=== PATIENT | female | born 1980 | race African-American/Black ===

== ENCOUNTER 2017-10-25 11:58 | Inpatient (IN) | payer OTHER ==
[2017-10-25] VITALS (36 sets, daily range): BP systolic 83–222; BP diastolic 61–129
[~2017-10-25] VITALS: Ht 157.5 cm; Wt 73.9 kg
[2017-10-25] MEDS ORDERED: ALBUTEROL SULF 0.083% NEB SOLN 3 ML NEB NEB STA (12:16)
[2017-10-25] MEDS ORDERED: SODIUM CHLORIDE 0.9% 1000ML 1,000 ML IV ONE ×2 (12:30)
[2017-10-25] MEDS ORDERED: PIPER-TAZ 3.375 GM 50 ML IV ONE (12:30)
[2017-10-25] MEDS ORDERED: METOPROLOL SUCC50 MG PO (12:38)
[2017-10-25] MEDS ORDERED: SYNTHROID125 MCG PO (12:38)
[2017-10-25] MEDS ORDERED: IOPAMIDOL 370 MG/ML 200 ML INFUS..BTL INJ ONE (13:00)
[2017-10-25] MEDS ORDERED: SODIUM CHLORIDE 0.9% 1000ML 1,000 ML IV SCH ×2 (13:01→16:15)
[2017-10-25] MEDS ORDERED: ENOXAPARIN INJ 80 MG/0.8 ML SYR SC STA (13:16)
[2017-10-25] MEDS: LEVALBUTEROL HCL SOLN NEBU 1.25 MG/3 ML NEB INH PRN (13:48)
[2017-10-25 14:15] LABS: BASOPHILS # (AUTO) 0.1 (0.0-0.1); BASOPHILS % 0.3 % (0.0-1.0); LYMPHOCYTES # (AUTO) 0.4 (1.0-3.2); LYMPHOCYTES % 1.3 % (18.0-39.1); MEAN CORPUSCULAR HEMOGLOBIN 24.8 pg (28-32); MEAN CORPUSCULAR HGB CONC 32.4 g/dL (31-35); MEAN CORPUSCULAR VOLUME 76.6 fL (81-99); MONOCYTES # (AUTO) 0.7 (0.2-0.8); MONOCYTES % 2.5 % (4.4-11.3); NEUTROPHILS # (AUTO) 26.7 (2.1-6.9); PLATELET COUNT 286 x10e3/uL (140-360); RED BLOOD COUNT 4.44 x10e6/uL (3.6-5.1); RED CELL DISTRIBUTION WIDTH 18.5 % (11.7-14.4)
[2017-10-25 14:35] LABS: ALBUMIN 2.8 g/dL (3.5-5.0); ALBUMIN/GLOBULIN RATIO 0.6 (0.8-2.0); ANION GAP 23.4 mmol/L (8-16); CALCIUM 9.3 mg/dL (8.4-10.2); CREATININE, SERUM 1.45 mg/dL (0.57-1.11); POTASSIUM 3.4 mmol/L (3.5-5.1)
[2017-10-25 14:44] LABS: ANISOCYTOSIS SLIGHT; BAND NEUTROPHILS % (MANUAL) 15 %; LYMPHOCYTES % (MANUAL) 5 % (19-48); MICROCYTOSIS SLIGHT; MONOCYTES % (MANUAL) 2 % (3.4-9.0); NEUTROPHILS % (MANUAL) 78 % (40-74)
[2017-10-25 14:45] LABS: PLATELET ESTIMATE ADEQUATE; PLATELET MORPHOLOGY COMMENT NORMAL; RBC MORPHOLOGY COMMENT NORMAL; TOXIC GRANULATION SLIGHT
[2017-10-25 14:56] LABS: ABG PCO2 25 mmHg (41-51); ABG PH 7.47 (7.31-7.41); ABG PO2 384 mmHg (80-105)
[2017-10-25 14:57] LABS: CREATINE KINASE MB 2.8 ng/mL (0-5.0); HCG,QUANTITATIVE 22222.85 mIU/mL (0-10)
[2017-10-25 14:57] LABS: ABG HCO3 19 mmol/L (23-28)
[2017-10-25] MEDS ORDERED: ALBUTEROL SULF 0.083% NEB SOLN 3 ML NEB NEB SCH (15:00)
[2017-10-25 15:08] LABS: INR 1.41; PROTHROMBIN TIME 16.2 seconds (11.9-14.5)
[2017-10-25 15:09] LABS: BASOPHILS # (AUTO) 0.1 (0.0-0.1); BASOPHILS % 0.2 % (0.0-1.0); HEMATOCRIT 32.5 % (34.2-44.1); HEMOGLOBIN 10.2 g/dL (12.0-16.0); LYMPHOCYTES # (AUTO) 0.3 (1.0-3.2); LYMPHOCYTES % 1.1 % (18.0-39.1); MEAN CORPUSCULAR HEMOGLOBIN 24.6 pg (28-32); MEAN CORPUSCULAR HGB CONC 31.4 g/dL (31-35); MEAN CORPUSCULAR VOLUME 78.3 fL (81-99); MONOCYTES # (AUTO) 1.2 (0.2-0.8); MONOCYTES % 4.2 % (4.4-11.3); NEUTROPHILS # (AUTO) 25.3 (2.1-6.9); NEUTROPHILS % 92.1 % (38.7-80.0); PARTIAL THROMBOPLASTIN TIME 32.2 seconds (23.8-35.5); PLATELET COUNT 265 x10e3/uL (140-360); RED BLOOD COUNT 4.15 x10e6/uL (3.6-5.1); RED CELL DISTRIBUTION WIDTH 18.4 % (11.7-14.4)
[2017-10-25] MEDS ORDERED: ACETAMINOPHEN 1000 MG/100 ML 100 ML IV ONE (15:09)
[2017-10-25] MEDS ORDERED: PROPOFOL IV EMULSION 10MG/ML 100 ML ONE (15:14)
[2017-10-25] MEDS ORDERED: SUCCINYLCHOLINE CHLORIDE 20 MG/ML 10ML VIAL ONE (15:15)
[2017-10-25 15:19] LABS: ALBUMIN 2.4 g/dL (3.5-5.0); ALBUMIN/GLOBULIN RATIO 0.6 (0.8-2.0); ANION GAP 17.2 mmol/L (8-16); CALCIUM 8.1 mg/dL (8.4-10.2); CREATININE, SERUM 1.25 mg/dL (0.57-1.11); POTASSIUM 3.2 mmol/L (3.5-5.1)
[2017-10-25 15:34] LABS: ANISOCYTOSIS SLIGHT; BAND NEUTROPHILS % (MANUAL) 13 %; LYMPHOCYTES % (MANUAL) 4 % (19-48); MICROCYTOSIS SLIGHT; MONOCYTES % (MANUAL) 1 % (3.4-9.0); NEUTROPHILS % (MANUAL) 82 % (40-74); PLATELET ESTIMATE ADEQUATE; PLATELET MORPHOLOGY COMMENT NORMAL; RBC MORPHOLOGY COMMENT NORMAL; TOXIC GRANULATION SLIGHT
[2017-10-25] MEDS ORDERED: MIDAZOLAM HCL 2 MG/2 ML VIAL ONE (15:39)
[2017-10-25] MEDS ORDERED: VECURONIUM BROMIDE FOR INJ 20 MG VIAL ONE (15:40)
[2017-10-25] MEDS ORDERED: SODIUM CHLORIDE 0.9% 1000ML 1,000 ML ONE (15:46)
[2017-10-25] MEDS: VANCOMYCIN 1GM/NS 250 ML 250 ML IV SCH (16:00)
[2017-10-25 16:05] LABS: HIV 1&2 AB SCREEN NON-REACTIVE (NONREACTIVE)
--- NOTE | 2017-10-25 16:15 | Consultation ---
DATE OF CONSULTATION: October 25, 2017 INFECTIOUS DISEASE CONSULTATION HISTORY OF PRESENT ILLNESS: Ms. Stuart is a very pleasant 37-year-old female. She works in Hospital. I did see her yesterday as the curbside. She complained to me that the last 2 days she has been having headache, congestion, sore throat. The patient was refilling a prescription of Augmentin. My assessment yesterday if she had sinusitis. Her chest sounded clear yesterday, but today she presented to the emergency room with worsening condition. Patient is currently in the intensive care unit, being intubated. Infectious Disease was consulted. LABORATORY DATA: Her white count is 27.4, hemoglobin 10, hemoglobin 32, her platelet of 286. Sodium 128, potassium 3.2, creatinine 1.25 went up to 1.45. Liver enzyme AST of 40. Total protein 6.5. PHYSICAL EXAMINATION: GENERAL: She is currently alert. She is currently being intubated. HEENT: She does not appear icteric. CHEST: A few crackles bilaterally. HEART: S1/S2. No S3, no S4. No murmur. ABDOMEN: Soft. IMPRESSION: Respiratory failure. Sepsis. Concerned about pneumonia. Will get a chest x-ray. Agree with vancomycin, agree with Zosyn, will adjust for her kidney function. Will also add azithromycin. Obtain blood cultures, sputum cultures, especially after intubation. Will obtain HIV. Will follow. Job#: [id number] EV
--- NOTE | 2017-10-25 16:19 | Diagnostic Imaging Report ---
EXAMINATION: CHEST SINGLE (PORTABLE) INDICATION: \S\Intubation \S\[id number] \S\1600 COMPARISON: None FINDINGS: AP view TUBES and LINES: Endotracheal tube in place with tip pointing toward the right main bronchus. LUNGS: Limited study due to body habitus. Complete opacification of the left lung with mediastinal shift to the left. Right lung is clear. PLEURA: No right pleural effusion or pneumothorax. HEART AND MEDIASTINUM: Obscured, limiting evaluation. BONES AND SOFT TISSUES: No acute osseous lesion. Soft tissues are unremarkable. UPPER ABDOMEN: No free air under the diaphragm. IMPRESSION: The endotracheal tube is within right main bronchus. Recommend retraction/ repositioning. Complete opacification of the left lung with mediastinal shift to the left, likely due to atelectasis. Signed by: Dr. Garth Prince MD on 10/25/2017 4:16 PM
--- NOTE | 2017-10-25 16:57 | Diagnostic Imaging Report ---
EXAMINATION: CHEST SINGLE (PORTABLE) INDICATION: \S\verify et tube position after repositioning \S\[id number] \S\1637 COMPARISON: Same day at 1549 hours FINDINGS: See impression. IMPRESSION: Slight retraction of endotracheal tube with slightly improved aeration of the left lung when compared to prior exam. Recommend further retraction of endotracheal tube (2 3-cm). Signed by: Dr. Garth Prince MD on 10/25/2017 4:53 PM
[2017-10-25] MEDS ORDERED: ACETAMINOPHEN 1000 MG/100 ML IV ONE (17:00)
[2017-10-25 17:46] LABS: ABG HCO3 18 mmol/L (23-28); ABG PCO2 41 mmHg (41-51); ABG PH 7.25 (7.31-7.41); ABG PO2 113 mmHg (80-105)
[2017-10-25] MEDS ORDERED: PIPER-TAZ 3.375 GM 50 ML IV SCH (18:00)
[2017-10-25] MEDS ORDERED: LACTATED RINGER'S 1,000 ML ONE (18:15)
[2017-10-25] MEDS ORDERED: ACETAMINOPHEN 1000 MG/100 ML IV PRN (18:30)
--- NOTE | 2017-10-25 18:59 | Diagnostic Imaging Report ---
EXAMINATION: CHEST SINGLE (PORTABLE) INDICATION: \S\PNA \S\[id number] \S\1821 COMPARISON: Earlier same day FINDINGS: AP view See below. IMPRESSION: Further retraction of endotracheal tube with tip now approximately 2.2 cm above martha and slight improvement of the left lung aeration. Underlying pneumonia/effusion in the left lung cannot be excluded. Signed by: Dr. Garth Prince MD on 10/25/2017 6:56 PM
[2017-10-25] MEDS: LACTATED RINGER'S 1,000 ML IV SCH (19:36)
[2017-10-25] MEDS: AZITHROMYCIN 500MG/NS 250 ML 250 ML IV SCH (20:30)
--- NOTE | 2017-10-25 21:57 | History and Physical ---
HISTORY OF PRESENT ILLNESS: Ms. Ramirez is a 37-year-old female. She is well known to me from [facility]. 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 She presented to the free standing emergency room with complaints of shortness of breath and cough. She spoke to Dr. Hollins today before this visit that she was having trouble breathing. In the freestanding ER, she was tachypneic and tachycardic. She was sent to the hospital here at [facility], became tachypneic and tachycardic and was unable to breathe, hence the patient was intubated by the emergency room. It was a difficult intubation as the patient has a history of Tourette syndrome and has very short neck. The patient is denying any complaints. The patient is currently intubated, sedated. REVIEW OF SYSTEMS: Unable to elicit any as the patient is intubated, sedated. PAST MEDICAL HISTORY: The brother is at the bedside and there is no other family member, or children and has told me that she does not have any medical problem. FAMILY AND SOCIAL HISTORY: She does not smoke, does not drink. She works as a receptionist secretary. PHYSICAL EXAM: VITAL SIGNS: Temperature 104.7, pulse of 140, blood pressure 113/64. HEENT: Head atraumatic, normocephalic. NECK: Short neck. CHEST: Clear to auscultation bilaterally with crackles on the left side. HEART: S1, S2 audible. ABDOMEN: Soft, nontender. EXTREMITIES: No clubbing, cyanosis or edema. NEUROLOGIC: She is sedated, intubated. LABS: The patient's white count is 27,000, hemoglobin 10.2, hematocrit 32.5, platelets 265,000. Chemistry: Sodium 128, potassium 3.2, chloride 96, BUN 19, creatinine 1.25, was 1.45. Lactic acid was 36.3. Patient's hydrochlorothiazide is 22,000. Creatinine clearance was 73. Chest x-ray is showing evidence of left-sided multilobar pneumonia. ASSESSMENT/PLAN: Ms. Ramirez is a 37-year-old female, presented with acute hypoxic respiratory failure and shortness of breath. Chest x-ray is showing pneumonia. Currently, she has severe sepsis which was present on admission. Current problems: 1. Severe sepsis with high lactic acid, tachycardia, tachypnea. The patient never required vasopressors and is not hypotensive. I will start the patient on IV antibiotics. Discussed with Dr. Hollins. He recommended vancomycin, Zosyn and azithromycin. 2. Keep the patient on mechanical ventilator. Vent settings reviewed. Blood gas post intubation pH of 7.25, pCO2 of 40 and pO2 of 113 on FiO2 of 60%. 3. I will repeat her chest x-ray to confirm the position of the tube. 4. She has a difficult airway because of Tourette syndrome. She has small neck. The patient was intubated with multiple attempts. 5. Acute kidney injury, likely ATN due to severe sepsis. I will start the patient on IV hydration. Also will consider starting tube feeding. 6. The patient's hCG is high and she is , therefore, we cannot do a CTA of the chest which we were planning initially to do. Job#: [id number]
--- NOTE | 2017-10-25 22:08 | Diagnostic Imaging Report ---
EXAM: Obstetric Pelvic Ultrasound INDICATION: Positive test. COMPARISON: None TECHNIQUE: Transabdominal and transvaginal evaluation of the pelvis was performed in the transverse and longitudinal planes. CLINICAL HISTORY: 37 year old intubated, without known SOLE TACKER history FINDINGS: Uterus: Orientation: Normal Size: 8.6 x 5.1 x 6.5 cm, gravid Mass: None Cervix: Normal Gestational Sac: Location: Intrauterine Average sac diameter: 2.35 cm Estimated sonographic GA: 7 weeks and 3 days Appearance: Normal in contour Subchorionic hemorrhage: None Yolk sac: Normal Embryo/Fetus: [place] rump length: 1.06 cm Estimated sonographic GA: 7 weeks and 1 day Cardiac activity: ... Several M-mode Right ovary Not seen Left ovary Size: 2.6 x 1.2 x 3.2 cm Mass/Cyst: None Cul-de-sac: No free fluid IMPRESSION: 1. Intrauterine of indeterminate viability. 2. Inconclusive study. Continued follow-up with serial beta-hCG is recommended. Repeat transvaginal ultrasound can be performed for another attempt of an M-mode or color flow for capture of cardiac activity Signed by: Dr. Preston Mendez M.D. on 10/25/2017 10:05 PM
--- NOTE | 2017-10-25 23:27 | Diagnostic Imaging Report ---
EXAMINATION: CHEST XRAY LINE PLACEMENT INDICATION: PICC line confirmation COMPARISON: 10/25/2017 at 1825 hours FINDINGS: TUBES and LINES: Endotracheal and NG tube are stable in position. Interval placement of right upper extremity PICC line with tip at the level of the superior segment of the SVC LUNGS: Lungs are not well inflated. Diffuse opacification with air bronchogram of the left hemithorax with minimal air at the apex . Right lung base Central vascular congestion. PLEURA: Left pleural effusion is present HEART AND MEDIASTINUM: Cardiac size is mildly enlarged. There are atherosclerotic calcifications within the aorta. BONES AND SOFT TISSUES: No acute osseous lesion. Soft tissues are unremarkable. UPPER ABDOMEN: No free air under the diaphragm. IMPRESSION: 1. Findings are in keeping with left lung base pneumonia versus atelectasis. 2. Tubes and lines are in good position. Signed by: Dr. Preston Mendez M.D. on 10/25/2017 11:24 PM
[2017-10-25 23:31] LABS: CREATINE KINASE MB 3.3 ng/mL (0-5.0)
[2017-10-26] VITALS (97 sets, daily range): BP systolic 65–201; BP diastolic 26–141
[2017-10-26] MEDS: LACTATED RINGER'S 1,000 ML IV SCH ×3 (03:30→19:04)
[2017-10-26] MEDS: PIPERACILLIN/TAZO 2.25 GM 50 ML IV SCH ×2 (05:49→14:42)
[2017-10-26 06:09] LABS: BASOPHILS % 0.2 % (0.0-1.0); HEMOGLOBIN 8.2 g/dL (12.0-16.0); LYMPHOCYTES # (AUTO) 0.3 (1.0-3.2); LYMPHOCYTES % 1.8 % (18.0-39.1); MEAN CORPUSCULAR HEMOGLOBIN 24.7 pg (28-32); MEAN CORPUSCULAR HGB CONC 31.5 g/dL (31-35); MEAN CORPUSCULAR VOLUME 78.3 fL (81-99); MONOCYTES # (AUTO) 0.5 (0.2-0.8); MONOCYTES % 2.5 % (4.4-11.3); NEUTROPHILS % 93.9 % (38.7-80.0); PLATELET COUNT 214 x10e3/uL (140-360); RED BLOOD COUNT 3.32 x10e6/uL (3.6-5.1); RED CELL DISTRIBUTION WIDTH 18.6 % (11.7-14.4)
[2017-10-26 06:35] LABS: CREATINE KINASE MB 2.7 ng/mL (0-5.0)
--- NOTE | 2017-10-26 06:51 | Diagnostic Imaging Report ---
EXAMINATION: CHEST SINGLE (PORTABLE) INDICATION: Intubated patient. COMPARISON: 10/25/2017 at 2257 hours FINDINGS: TUBES and LINES: Endotracheal and NG tube are stable in position. Interval placement of right upper extremity PICC line with tip at the level of the superior segment of the SVC LUNGS: Lungs are not well inflated. Diffuse opacification with air bronchogram of the left hemithorax with minimal air at the apex . Right lung base Central vascular congestion. PLEURA: Left pleural effusion is present HEART AND MEDIASTINUM: Cardiac size is mildly enlarged. There are atherosclerotic calcifications within the aorta. BONES AND SOFT TISSUES: No acute osseous lesion. Soft tissues are unremarkable. UPPER ABDOMEN: No free air under the diaphragm. IMPRESSION: 1. Findings are in keeping with left lung base pneumonia versus atelectasis. 2. Tubes and lines are in good position. Signed by: Dr. Preston Mendez M.D. on 10/26/2017 6:47 AM
[2017-10-26 07:08] LABS: ALANINE AMINOTRANSFERASE 33 IU/L (0-55); ALBUMIN 1.7 g/dL (3.5-5.0); ALBUMIN/GLOBULIN RATIO 0.5 (0.8-2.0); ALKALINE PHOSPHATASE 52 IU/L (40-150); ANION GAP 12.2 mmol/L (8-16); BLOOD UREA NITROGEN 21 mg/dL (7-26); BUN/CREATININE RATIO 18 (6-25); CARBON DIOXIDE 18 mmol/L (22-29); CHLORIDE 103 mmol/L (98-107); CREATININE, SERUM 1.16 mg/dL (0.57-1.11); EST GLOMERULAR FILTRATION RATE > 60 ML/MIN (60-); GLUCOSE 111 mg/dL (74-118); POTASSIUM 3.2 mmol/L (3.5-5.1); SODIUM 130 mmol/L (136-145)
[2017-10-26] MEDS: MIDAZOLAM HCL 25 MG in SODIUM CHLORIDE 0.9% 50ML 45 ML IV PRN ×2 (09:45→21:42)
[2017-10-26] MEDS: FAMOTIDINE 20 MG/2 ML VIAL IV SCH ×2 (09:53→20:39)
--- NOTE | 2017-10-26 10:06 | Diagnostic Imaging Report ---
CORRECTION Corrected on: 10/26/2017; Dictated by: Xavier Nieves M.D. on 10/26/2017 at 10:10 Electronically approved by: Xavier Nieves M.D. on 10/26/2017 at 10:10 PROCEDURE:US CHEST (INCL MEDIASTINUM) COMPARISON:[facility], DX, CHEST SINGLE (PORTABLE), 10/25/2017, 18:25. INDICATION:Pleural effusion TECHNIQUE:Grayscale ultrasound chest, bilateral FINDINGS: See conclusion. CONCLUSION: 1. Very small loculated left pleural effusion. 2. No right effusion. Dictated by: Xavier Nieves M.D. on 10/26/2017 at 10:09 Electronically approved by: Xavier Nieves M.D. on 10/26/2017 at 10:09
[2017-10-26 10:07] LABS: BAND NEUTROPHILS % (MANUAL) 29 %; LYMPHOCYTES % (MANUAL) 3 % (19-48); MONOCYTES % (MANUAL) 2 % (3.4-9.0); NEUTROPHILS % (MANUAL) 66 % (40-74)
[2017-10-26 10:08] LABS: PLATELET MORPHOLOGY COMMENT FEW LARGE
[2017-10-26 10:09] LABS: PLATELET ESTIMATE ADEQUATE
[2017-10-26 10:10] LABS: ANISOCYTOSIS SLIGHT; HYPOCHROMASIA MODERATE; POIKILOCYTOSIS SLIGHT; RBC MORPHOLOGY COMMENT ABNORMAL
[2017-10-26 10:11] LABS: BURR CELLS SLIGHT
[2017-10-26] MEDS: LEVALBUTEROL HCL SOLN NEBU 1.25 MG/3 ML NEB INH PRN (11:12)
[2017-10-26] MEDS ORDERED: METOPROLOL TARTRATE INJ 1 MG/ML VIAL ONE (12:22)
[2017-10-26] MEDS: ACETAMINOPHEN 1000 MG/100 ML IV PRN ×2 (12:30→18:30)
[2017-10-26] MEDS ORDERED: METOPROLOL TARTRATE INJ 1 MG/ML VIAL IV ONE (12:30)
[2017-10-26] MEDS: VANCOMYCIN 1GM/NS 250 ML 250 ML IV SCH (13:26)
--- NOTE | 2017-10-26 15:35 | Consultation ---
DATE OF CONSULTATION: ADDENDUM TO THE CONSULT Ms. Ramirez is currently intubated in intensive care unit. The patient is currently lying in bed intubated. PHYSICAL EXAMINATION: GENERAL: She is intubated, sedated. VITAL SIGNS: Stable, afebrile. She had a T-max of 104.7, heart rate is 140 earlier. HEENT: She does not appear icteric. NECK: Supple. ABDOMEN: Soft. Bowel sounds are present. No tenderness. The patient who is found to be 5 weeks. IMPRESSION: 1. Pneumonia. 2. Acute respiratory distress. 3. Community-acquired pneumonia, severe. 4. Sepsis, severe. Continue with vancomycin. Continue with Zosyn. Continue with azithromycin. Await sputum cultures which I obtained immediately after intubation. Consider foxpro developer-nailer hand evaluation. Will discuss with attending. Job#: [id number]
[2017-10-26] MEDS: AZITHROMYCIN 500MG/NS 250 ML 250 ML IV SCH (15:55)
[2017-10-26] MEDS: ENOXAPARIN 30 MG/0.3 ML SYR SC SCH (15:55)
[2017-10-26] MEDS: FOLIC ACID 1 MG TAB PO SCH (20:39)
[2017-10-26] MEDS: PIPER-TAZ 3.375 GM 50 ML IV SCH (22:09)
[2017-10-27] VITALS (78 sets, daily range): BP systolic 93–169; BP diastolic 29–125
[2017-10-27] MEDS: VANCOMYCIN 1GM/NS 250 ML 250 ML IV SCH ×2 (01:44→14:17)
[2017-10-27] MEDS: ACETAMINOPHEN 1000 MG/100 ML IV PRN ×2 (02:07→10:02)
[2017-10-27] MEDS: LACTATED RINGER'S 1,000 ML IV SCH ×2 (03:12→08:52)
[2017-10-27 06:04] LABS: BASOPHILS % 0.3 % (0.0-1.0); EOSINOPHILS % 0.1 % (0.0-6.0); HEMATOCRIT 26.3 % (34.2-44.1); HEMOGLOBIN 8.4 g/dL (12.0-16.0); LYMPHOCYTES # (AUTO) 0.5 (1.0-3.2); LYMPHOCYTES % 3.2 % (18.0-39.1); MEAN CORPUSCULAR HEMOGLOBIN 24.8 pg (28-32); MEAN CORPUSCULAR HGB CONC 31.9 g/dL (31-35); MEAN CORPUSCULAR VOLUME 77.6 fL (81-99); MONOCYTES # (AUTO) 0.4 (0.2-0.8); MONOCYTES % 2.7 % (4.4-11.3); NEUTROPHILS # (AUTO) 14.2 (2.1-6.9); NEUTROPHILS % 90.7 % (38.7-80.0); PLATELET COUNT 225 x10e3/uL (140-360); RED BLOOD COUNT 3.39 x10e6/uL (3.6-5.1); RED CELL DISTRIBUTION WIDTH 18.9 % (11.7-14.4)
[2017-10-27] MEDS: PIPER-TAZ 3.375 GM 50 ML IV SCH ×3 (06:14→22:46)
[2017-10-27 06:33] LABS: ANION GAP 12.3 mmol/L (8-16); BLOOD UREA NITROGEN 23 mg/dL (7-26); BUN/CREATININE RATIO 23 (6-25); CARBON DIOXIDE 20 mmol/L (22-29); CHLORIDE 104 mmol/L (98-107); EST GLOMERULAR FILTRATION RATE > 60 ML/MIN (60-); GLUCOSE 94 mg/dL (74-118); MAGNESIUM 1.6 MG/DL (1.3-2.1); POTASSIUM 3.3 mmol/L (3.5-5.1); SODIUM 133 mmol/L (136-145)
--- NOTE | 2017-10-27 06:52 | Diagnostic Imaging Report ---
EXAM: CHEST SINGLE (PORTABLE), AP 1 view INDICATION: Intubated COMPARISON: AP view of the chest October 26, 2017 FINDINGS: LINES/TUBES: Stable endotracheal tube and nasal/orogastric tube. LUNGS: Stable near complete opacification of the left lung. Airspace opacities in the right lung base. PLEURA: Effusion on the left as seen on prior ultrasound HEART AND MEDIASTINUM: Left heart border obscured BONES AND SOFT TISSUES: No interval change IMPRESSION: No interval change Signed by: Dr. Oneyda Dewey M.D. on 10/27/2017 6:48 AM
[2017-10-27] MEDS: LEVALBUTEROL HCL SOLN NEBU 1.25 MG/3 ML NEB INH PRN (07:30)
[2017-10-27] MEDS ORDERED: POTASSIUM CHLORIDE 20MEQ/100ML 100 ML IV ONE (08:30)
[2017-10-27] MEDS: FOLIC ACID 1 MG TAB PO SCH (08:52)
[2017-10-27] MEDS: FAMOTIDINE 20 MG/2 ML VIAL IV SCH ×2 (08:52→21:39)
[2017-10-27] MEDS: EYE LUBRICANT OPTH OINT 3.5GM TUBE OP SCH ×2 (08:52→16:44)
[2017-10-27 09:02] LABS: ABG HCO3 19 mmol/L (23-28); ABG PCO2 26 mmHg (41-51); ABG PH 7.46 (7.31-7.41); ABG PO2 148 mmHg (80-105)
[2017-10-27 09:13] LABS: ANISOCYTOSIS SLIGHT; BAND NEUTROPHILS % (MANUAL) 8 %; HYPOCHROMASIA SLIGHT; LYMPHOCYTES % (MANUAL) 2 % (19-48); METAMYELOCYTES % (MANUAL) 3 % (0-0); MONOCYTES % (MANUAL) 3 % (3.4-9.0); MYELOCYTES % (MANUAL) 1 % (0-0); NEUTROPHILS % (MANUAL) 83 % (40-74); PLATELET ESTIMATE ADEQUATE
[2017-10-27 09:17] LABS: PLATELET MORPHOLOGY COMMENT FEW GIANT; POIKILOCYTOSIS SLIGHT; RBC MORPHOLOGY COMMENT NORMAL
[2017-10-27] MEDS: FENTANYL CITRATE INJ 2,000 MCG in SODIUM CHLORIDE 0.9% 250ML 210 ML IV PRN (10:03)
[2017-10-27] MEDS: LEVALBUTEROL HCL SOLN NEBU 1.25 MG/3 ML NEB INH SCH ×2 (14:21→19:00)
[2017-10-27] MEDS: ENOXAPARIN 30 MG/0.3 ML SYR SC SCH (16:44)
[2017-10-27] MEDS: AZITHROMYCIN 500MG/NS 250 ML 250 ML IV SCH (16:44)
--- NOTE | 2017-10-27 17:42 | Diagnostic Imaging Report ---
PROCEDURE:ABDOMINAL ULTRASOUND COMPARISON:None. INDICATIONS:FEVER TECHNIQUE: Payton-scale and color sonographic images were obtained of the abdomen in transverse and sagittal planes. FINDINGS: Exam limited due to large body habitus and intubation, with inability to follow breathing instructions Liver: 19.1 cm in length in right midclavicular line. Coarse echotexture with prominence of the portal triads.. No masses. Main portal vein: 0.7 centimeter, hepatopetal flow Gallbladder: Difficult to clearly visualize. No stones, sludge, or pericholecystic fluid. Common Bile Duct: 0.5 cm. Sonographic Foley's sign: Negative Right kidney: 12.1 cm. Left kidney: 13.4 cm. Normal bilateral renal cortical echogenicity. No hydronephrosis, stones, or masses. Spleen: 11.0 cm. Pancreas: The visualized portions are unremarkable. Inferior vena cava: Patent Aorta: Within normal limits Ascites: None. Incidental note is made of bilateral small pleural effusions. CONCLUSION: 1. Limited exam, as detailed above. 2. Hepatomegaly. Coarse hepatic echotexture with mild prominence of the portal triads. Nonspecific, however, may be seen with prolonged fasting, right heart failure and hepatitis. No focal lesions. 3. Small bilateral pleural effusions. Dural tube. Matt Royal M.D. Dictated by: Matt Royal M.D. on 10/27/2017 at 17:46 Electronically approved by: Matt Royal M.D. on 10/27/2017 at 17:46
[2017-10-27] MEDS ORDERED: DEXTROSE 50% SYRINGE 50 ML IV ONE ×2 (18:10→18:30)
[2017-10-27] MEDS ORDERED: METOPROLOL TARTRATE INJ 1 MG/ML VIAL IV PRN (18:45)
[2017-10-27] MEDS ORDERED: SODIUM CHLORIDE 0.9% 1000ML 1,000 ML ONE (19:36)
[2017-10-27 20:36] LABS: BASOPHILS # (AUTO) 0.1 (0.0-0.1); BASOPHILS % 0.3 % (0.0-1.0); EOSINOPHILS % 0.2 % (0.0-6.0); HEMATOCRIT 27.1 % (34.2-44.1); HEMOGLOBIN 8.6 g/dL (12.0-16.0); LYMPHOCYTES # (AUTO) 0.5 (1.0-3.2); LYMPHOCYTES % 2.6 % (18.0-39.1); MEAN CORPUSCULAR HEMOGLOBIN 24.6 pg (28-32); MEAN CORPUSCULAR HGB CONC 31.7 g/dL (31-35); MEAN CORPUSCULAR VOLUME 77.4 fL (81-99); MONOCYTES # (AUTO) 0.7 (0.2-0.8); MONOCYTES % 3.6 % (4.4-11.3); NEUTROPHILS # (AUTO) 16.8 (2.1-6.9); NEUTROPHILS % 87.2 % (38.7-80.0); PLATELET COUNT 234 x10e3/uL (140-360); RED CELL DISTRIBUTION WIDTH 19.2 % (11.7-14.4)
[2017-10-27] MEDS ORDERED: SODIUM CHLORIDE 0.9% 1000ML 1,000 ML IV ONE (21:00)
[2017-10-28] VITALS (98 sets, daily range): BP systolic 78–173; BP diastolic 38–149
[2017-10-28] MEDS: LEVALBUTEROL HCL SOLN NEBU 1.25 MG/3 ML NEB INH SCH ×3 (00:40→18:35)
[2017-10-28] MEDS: ACETAMINOPHEN 1000 MG/100 ML IV PRN ×2 (01:00→11:11)
[2017-10-28] MEDS: LACTATED RINGER'S 1,000 ML IV SCH (01:57)
[2017-10-28] MEDS: VANCOMYCIN 1GM/NS 250 ML 250 ML IV SCH ×2 (01:57→14:22)
[2017-10-28] MEDS: MIDAZOLAM HCL 25 MG in SODIUM CHLORIDE 0.9% 50ML 45 ML IV PRN ×3 (04:01→18:42)
[2017-10-28 05:49] LABS: BASOPHILS # (AUTO) 0.1 (0.0-0.1); BASOPHILS % 0.3 % (0.0-1.0); EOSINOPHILS # (AUTO) 0.1 (0.0-0.4); EOSINOPHILS % 0.5 % (0.0-6.0); HEMATOCRIT 25.1 % (34.2-44.1); LYMPHOCYTES # (AUTO) 0.9 (1.0-3.2); LYMPHOCYTES % 4.8 % (18.0-39.1); MEAN CORPUSCULAR HEMOGLOBIN 24.5 pg (28-32); MEAN CORPUSCULAR HGB CONC 31.5 g/dL (31-35); MEAN CORPUSCULAR VOLUME 77.7 fL (81-99); MONOCYTES # (AUTO) 0.7 (0.2-0.8); MONOCYTES % 3.9 % (4.4-11.3); NEUTROPHILS # (AUTO) 14.7 (2.1-6.9); NEUTROPHILS % 82.7 % (38.7-80.0); PLATELET COUNT 211 x10e3/uL (140-360); RED BLOOD COUNT 3.23 x10e6/uL (3.6-5.1); RED CELL DISTRIBUTION WIDTH 19.2 % (11.7-14.4)
[2017-10-28 06:08] LABS: ANION GAP 10.5 mmol/L (8-16); BLOOD UREA NITROGEN 17 mg/dL (7-26); BUN/CREATININE RATIO 24 (6-25); CALCIUM 7.8 mg/dL (8.4-10.2); CARBON DIOXIDE 22 mmol/L (22-29); CHLORIDE 108 mmol/L (98-107); EST GLOMERULAR FILTRATION RATE > 60 ML/MIN (60-); GLUCOSE 108 mg/dL (74-118); MAGNESIUM 1.4 MG/DL (1.3-2.1); POTASSIUM 3.5 mmol/L (3.5-5.1); SODIUM 137 mmol/L (136-145)
[2017-10-28] MEDS: PIPER-TAZ 3.375 GM 50 ML IV SCH ×3 (06:09→22:00)
[2017-10-28 06:14] LABS: HEMOGLOBIN 7.9 g/dL (12.0-16.0)
--- NOTE | 2017-10-28 06:36 | Diagnostic Imaging Report ---
EXAM: CHEST SINGLE (PORTABLE), AP 1 view INDICATION: Altered mental status COMPARISON: AP view of the chest October 27, 2017 FINDINGS: LINES/TUBES: Stable position endotracheal tube, nasal/orogastric tube and right approach PICC. LUNGS: Near complete opacification of the left lung. PLEURA: Probable left pleural effusion. HEART AND MEDIASTINUM: Partially obscured BONES AND SOFT TISSUES: No acute findings. IMPRESSION: Worsening opacification of the left hemithorax. Signed by: Dr. Oneyda Dewey M.D. on 10/28/2017 6:32 AM
[2017-10-28 07:55] LABS: BAND NEUTROPHILS % (MANUAL) 3 %; EOSINOPHILS % (MANUAL) 3 % (0-7); LYMPHOCYTES % (MANUAL) 4 % (19-48); METAMYELOCYTES % (MANUAL) 2 % (0-0); MONOCYTES % (MANUAL) 2 % (3.4-9.0); MYELOCYTES % (MANUAL) 1 % (0-0); NEUTROPHILS % (MANUAL) 85 % (40-74)
[2017-10-28 07:56] LABS: ANISOCYTOSIS SLIGHT; HYPOCHROMASIA MODERATE; PLATELET ESTIMATE ADEQUATE; PLATELET MORPHOLOGY COMMENT FEW LARGE; RBC MORPHOLOGY COMMENT NORMAL
[2017-10-28] MEDS: FAMOTIDINE 20 MG/2 ML VIAL IV SCH ×2 (08:07→20:33)
[2017-10-28] MEDS: EYE LUBRICANT OPTH OINT 3.5GM TUBE OP SCH ×2 (08:07→16:46)
[2017-10-28] MEDS ORDERED: FUROSEMIDE INJ 10 MG/ML 2 ML VIAL ONE (08:07)
[2017-10-28] MEDS: FOLIC ACID 1 MG TAB PO SCH (08:07)
[2017-10-28] MEDS ORDERED: FUROSEMIDE INJ 10 MG/ML 4 ML VIAL IV NR (08:15)
--- NOTE | 2017-10-28 10:32 | Consultation ---
DATE OF CONSULTATION: October 28, 2017 CARDIOLOGY CONSULTATION REASON FOR CONSULTATION: Tachycardia. HPI: This is a 37-year-old female that presented with respiratory distress. According to the medical record and the patient's mother at the bedside, for the last 2 weeks she has not been feeling good. She was started on p.o. antibiotics by PCP. She was at work still not feeling good. Her oxygen saturation was checked and it was real low. She was sent to the emergency room for evaluation. She presented to the free-standing ER and was sent over here for further evaluation. In the ER, she was found with low oxygen saturation. She was intubated and transferred to the ICU for higher level of care. She had a chest x-ray done that showed complete opacification of the left lung with mediastinum shift to the left. She is intubated and sedated, and not able to follow any commands. Heart rate was in the 130s and cardiology was consulted. PAST MEDICAL HISTORY: Hypothyroidism, hypertension and Gooden's syndrome. SOCIAL HISTORY: She works at [employer]. No smoking. No drinking. FAMILY HISTORY: Positive for asthma. MEDICATION: See med list. ALLERGIES: SHE IS ALLERGIC TO MORPHINE AND SULFA. REVIEW OF SYSTEMS: Negative except as mentioned above. She is positive for pneumonia. PHYSICAL EXAMINATION: VITAL SIGNS: Temperature 100, respirations 20, temperature 99, blood pressure 100/64. GENERAL: She is intubated and sedated. HEENT: Mucous membrane moist. NECK: Supple. LUNGS: Bilateral with decreased breath sounds. CARDIOVASCULAR: S1 and S2 present. ABDOMEN: Soft. NEUROLOGICAL: She is sedated. EXTREMITIES: With trace edema. LABS: Sodium 137, potassium 3.5, chloride 108, CO2 22, BUN is 17, creatinine 0.7, glucose 108. White blood cells 17.8, hemoglobin is 7.9, hematocrit 25.1, and platelets 211,000. PT 16.2, PTT 32.2, and INR 1.41. IMPRESSION 1. Sinus tachycardia. 2. Pneumonia. 3. Sepsis. 4. Hypothyroidism. 5. Anemia. 6. History of Gooden's syndrome. 7. She is positive for . ASSESSMENT AND PLAN 1. She is intubated and sedated on respiratory. 2. Will go ahead and get an echocardiogram to assess the LV and the valve function. Will continue IV beta miah. She is being followed by [facility]MINISTRATOR. Further cardiac workup pending clinical course. Thank you for this consultation. DICTATED BY VIJAY MAK NP Job#: [id number] RI
[2017-10-28] MEDS: METOPROLOL TARTRATE INJ 1 MG/ML VIAL IV PRN ×2 (11:00→21:30)
[2017-10-28 14:30] LABS: ABG HCO3 23 mmol/L (23-28); ABG PCO2 49 mmHg (41-51); ABG PH 7.27 (7.31-7.41); ABG PO2 65 mmHg (80-105)
--- NOTE | 2017-10-28 16:15 | Progress Note ---
DATE: October 28, 2017 Ms. Stuart remains in the intensive care unit. She is having some spotting noted. She is on a ventilator but her vent setting seems to be slightly better. Her vitals also seem to be better, although her chest x-ray is worse. Discussed all the above with her mother. The patient is intubated and sedated. OBJECTIVE GENERAL: She is intubated and sedated. HEENT: Normocephalic. CHEST: A few crackles. HEART: S1 and S2, no S3 or S4, no murmur. ABDOMEN: Soft. IMPRESSION: Community-acquired pneumonia. Concerned about early acute respiratory distress syndrome. PLAN: Continue with coverage of antibiotics as ordered above. Continue with supportive care. Concerned that she may lose her . Will follow. Job#: [id number]
[2017-10-28] MEDS: AZITHROMYCIN 500MG/NS 250 ML 250 ML IV SCH (16:46)
[2017-10-28] MEDS: ENOXAPARIN 30 MG/0.3 ML SYR SC SCH (17:59)
[2017-10-28] MEDS: FENTANYL CITRATE INJ 2,000 MCG in SODIUM CHLORIDE 0.9% 250ML 210 ML IV PRN (18:45)
[2017-10-28] MEDS ORDERED: FENTANYL CITRATE/PF 100MCG/2 ML INJ ONE (21:42)
[2017-10-28] MEDS ORDERED: SODIUM CHLORIDE 0.9% 250ML 250 ML ONE (21:43)
[2017-10-29] VITALS (92 sets, daily range): BP systolic 100–144; BP diastolic 57–93
[2017-10-29] MEDS: VANCOMYCIN 1GM/NS 250 ML 250 ML IV SCH ×2 (01:45→15:19)
[2017-10-29] MEDS: LEVALBUTEROL HCL SOLN NEBU 1.25 MG/3 ML NEB INH SCH ×4 (02:35→19:15)
[2017-10-29] MEDS: ACETAMINOPHEN 1000 MG/100 ML IV PRN (05:40)
[2017-10-29] MEDS: PIPER-TAZ 3.375 GM 50 ML IV SCH ×3 (05:41→22:07)
--- NOTE | 2017-10-29 06:53 | Diagnostic Imaging Report ---
EXAM: CHEST SINGLE (PORTABLE), AP 1 view INDICATION: Intubated COMPARISON: AP view of the chest October 28, 2017 FINDINGS: LINES/TUBES: Stable support lines and tubes. LUNGS: Persistent near complete opacification of the left lung. Increasing consolidation in the right lung base. PLEURA: No effusions or pneumothorax. HEART AND MEDIASTINUM: Obscured BONES AND SOFT TISSUES: No acute findings. IMPRESSION: Persistent near complete opacification of the left lung. Increasing consolidation in the right lung base. Signed by: Dr. Oneyda Dewey M.D. on 10/29/2017 6:49 AM
[2017-10-29 07:11] LABS: EST GLOMERULAR FILTRATION RATE > 60 ML/MIN (60-)
[2017-10-29 07:34] LABS: BASOPHILS # (AUTO) 0.1 (0.0-0.1); BASOPHILS % 0.4 % (0.0-1.0); EOSINOPHILS # (AUTO) 0.2 (0.0-0.4); HEMATOCRIT 23.4 % (34.2-44.1); LYMPHOCYTES # (AUTO) 1.2 (1.0-3.2); LYMPHOCYTES % 6.7 % (18.0-39.1); MEAN CORPUSCULAR HEMOGLOBIN 24.4 pg (28-32); MEAN CORPUSCULAR HGB CONC 31.2 g/dL (31-35); MEAN CORPUSCULAR VOLUME 78.3 fL (81-99); MONOCYTES # (AUTO) 1.2 (0.2-0.8); MONOCYTES % 6.8 % (4.4-11.3); NEUTROPHILS # (AUTO) 11.6 (2.1-6.9); NEUTROPHILS % 66.8 % (38.7-80.0); PLATELET COUNT 175 x10e3/uL (140-360); RED BLOOD COUNT 2.99 x10e6/uL (3.6-5.1); RED CELL DISTRIBUTION WIDTH 19.5 % (11.7-14.4)
[2017-10-29 07:37] LABS: HEMOGLOBIN 7.3 g/dL (12.0-16.0)
[2017-10-29 07:54] LABS: ANION GAP 9.9 mmol/L (8-16); BLOOD UREA NITROGEN 19 mg/dL (7-26); BUN/CREATININE RATIO 24 (6-25); CARBON DIOXIDE 26 mmol/L (22-29); CHLORIDE 107 mmol/L (98-107); GLUCOSE 89 mg/dL (74-118); POTASSIUM 3.9 mmol/L (3.5-5.1)
[2017-10-29 07:55] LABS: SODIUM 139 mmol/L (136-145)
[2017-10-29] MEDS: EYE LUBRICANT OPTH OINT 3.5GM TUBE OP SCH ×2 (09:43→16:31)
[2017-10-29] MEDS: FAMOTIDINE 20 MG/2 ML VIAL IV SCH ×2 (09:43→21:03)
[2017-10-29] MEDS: FUROSEMIDE INJ 10 MG/ML 4 ML VIAL IV SCH (09:43)
[2017-10-29 10:03] LABS: BAND NEUTROPHILS % (MANUAL) 4 %; EOSINOPHILS % (MANUAL) 2 % (0-7); LYMPHOCYTES % (MANUAL) 9 % (19-48); METAMYELOCYTES % (MANUAL) 2 % (0-0); MONOCYTES % (MANUAL) 7 % (3.4-9.0); MYELOCYTES % (MANUAL) 1 % (0-0); NEUTROPHILS % (MANUAL) 74 % (40-74); PROMYELOCYTES % (MANUAL) 1 % (0-0)
[2017-10-29 10:04] LABS: ANISOCYTOSIS MODERATE; HYPOCHROMASIA MODERATE; PLATELET ESTIMATE ADEQUATE; PLATELET MORPHOLOGY COMMENT FEW GIANT; RBC MORPHOLOGY COMMENT ABNORMAL
[2017-10-29] MEDS ORDERED: ROCURONIUM BROMIDE 1 ML ONE (10:04)
[2017-10-29] MEDS ORDERED: LIDOCAINE HCL-PF 4% 40 MG/1 ML 5ML AMP ONE (10:25)
[2017-10-29] MEDS ORDERED: LIDOCAINE HCL 4% 50 ML BTL ONE (10:26)
[2017-10-29 12:49] LABS: BODY FLUID TYPE BRONCH WASHING
[2017-10-29 12:50] LABS: BODY FLUID APPEARANCE CLOUDY; BODY FLUID COLOR RED
[2017-10-29 12:51] LABS: RBC,BODY FLUID 27275 cells/uL; WBC,BODY FLUID 1980 cells/uL
[2017-10-29] MEDS ORDERED: SODIUM CHLORIDE 0.9% 500ML 500 ML ONE (13:43)
[2017-10-29 14:09] LABS: LYMPHOCYTES,BODY FLUID 6 %; MONO/MACROPHG,BODY FLUID 12 %; NEUTROPHILS,BODY FLUID 82 %
[2017-10-29 14:59] LABS: ABG HCO3 29 mmol/L (23-28); ABG PCO2 53 mmHg (41-51); ABG PH 7.35 (7.31-7.41); ABG PO2 203 mmHg (80-105)
--- NOTE | 2017-10-29 15:18 | Diagnostic Imaging Report ---
PROCEDURE: A single AP view of the chest. COMPARISON: Same day at 5:37 AM INDICATIONS: POST BRONCHOSCOPY FINDINGS: Lines/tubes: Stable endotracheal tube, nasogastric tube, and right PICC. Lungs: Persistent near-complete opacification of the left lung and right lung multifocal opacities. Pleura: No visible pneumothorax. Heart and mediastinum: The cardiac silhouette is obscured. Bones: No acute bony abnormality. IMPRESSION: No significant interval change from prior exam. Dictated by: Garth Prince M.D. on 10/29/2017 at 15:22 Electronically approved by: Garth Prince M.D. on 10/29/2017 at 15:22
[2017-10-29] MEDS: FOLIC ACID 1 MG TAB PO SCH (15:19)
[2017-10-29] MEDS: AZITHROMYCIN 500MG/NS 250 ML 250 ML IV SCH (16:31)
[2017-10-29] MEDS: ENOXAPARIN 30 MG/0.3 ML SYR SC SCH (16:31)
[2017-10-29] MEDS: DOCUSATE SODIUM LIQD 100 MG/10 ML UDC NG SCH (16:38)
[2017-10-29] MEDS: NYSTATIN 15 GM POWDER UD BTL TOP SCH (17:55)
[2017-10-29] MEDS: MIDAZOLAM HCL 25 MG in SODIUM CHLORIDE 0.9% 50ML 45 ML IV PRN (22:00)
[2017-10-29] MEDS: FENTANYL CITRATE INJ 2,000 MCG in SODIUM CHLORIDE 0.9% 250ML 210 ML IV PRN (23:30)
[2017-10-30] VITALS (81 sets, daily range): BP systolic 106–150; BP diastolic 58–103
[2017-10-30] MEDS: LEVALBUTEROL HCL SOLN NEBU 1.25 MG/3 ML NEB INH SCH ×2 (00:30→07:18)
[2017-10-30] MEDS: VANCOMYCIN 1GM/NS 250 ML 250 ML IV SCH (01:28)
[2017-10-30] MEDS: FENTANYL CITRATE INJ 2,000 MCG in SODIUM CHLORIDE 0.9% 250ML 210 ML IV PRN ×2 (05:12→20:57)
[2017-10-30] MEDS: PIPER-TAZ 3.375 GM 50 ML IV SCH ×3 (05:12→21:06)
[2017-10-30] MEDS: MIDAZOLAM HCL 25 MG in SODIUM CHLORIDE 0.9% 50ML 45 ML IV PRN ×2 (05:12→20:57)
[2017-10-30] MEDS: ACETAMINOPHEN 1000 MG/100 ML IV PRN (05:25)
[2017-10-30 05:38] LABS: BASOPHILS # (AUTO) 0.1 (0.0-0.1); BASOPHILS % 0.4 % (0.0-1.0); EOSINOPHILS # (AUTO) 0.3 (0.0-0.4); EOSINOPHILS % 1.8 % (0.0-6.0); LYMPHOCYTES # (AUTO) 1.3 (1.0-3.2); LYMPHOCYTES % 8.9 % (18.0-39.1); MEAN CORPUSCULAR HEMOGLOBIN 24.5 pg (28-32); MEAN CORPUSCULAR HGB CONC 30.9 g/dL (31-35); MEAN CORPUSCULAR VOLUME 79.5 fL (81-99); MONOCYTES # (AUTO) 1.1 (0.2-0.8); MONOCYTES % 7.5 % (4.4-11.3); NEUTROPHILS # (AUTO) 8.8 (2.1-6.9); NEUTROPHILS % 62.6 % (38.7-80.0); PLATELET COUNT 224 x10e3/uL (140-360); RED BLOOD COUNT 2.73 x10e6/uL (3.6-5.1); RED CELL DISTRIBUTION WIDTH 19.3 % (11.7-14.4)
[2017-10-30 05:48] LABS: HEMATOCRIT 21.7 % (34.2-44.1)
[2017-10-30 05:50] LABS: HEMOGLOBIN 6.7 g/dL (12.0-16.0)
[2017-10-30 06:12] LABS: ANION GAP 10.7 mmol/L (8-16); BLOOD UREA NITROGEN 22 mg/dL (7-26); BUN/CREATININE RATIO 26 (6-25); CALCIUM 8.1 mg/dL (8.4-10.2); CARBON DIOXIDE 28 mmol/L (22-29); CHLORIDE 107 mmol/L (98-107); CREATININE, SERUM 0.84 mg/dL (0.57-1.11); EST GLOMERULAR FILTRATION RATE > 60 ML/MIN (60-); GLUCOSE 125 mg/dL (74-118); POTASSIUM 3.7 mmol/L (3.5-5.1); SODIUM 142 mmol/L (136-145)
--- NOTE | 2017-10-30 06:19 | Diagnostic Imaging Report ---
EXAM: CHEST SINGLE (PORTABLE), AP 1 view INDICATION: Ventilated COMPARISON: AP view of the chest October 29, 2017 FINDINGS: LINES/TUBES: Stable support lines and tubes LUNGS: Increasing opacity of the right lung. Near-complete opacification of the left lung, stable. PLEURA: Indeterminate on the left for effusion HEART AND MEDIASTINUM: Obscured BONES AND SOFT TISSUES: No acute findings. IMPRESSION: Increasing opacity of the right lung. Near complete opacification of the left lung. Signed by: Dr. Oneyda Dewey M.D. on 10/30/2017 6:15 AM
[2017-10-30] MEDS ORDERED: SODIUM CHLORIDE 0.9% 250ML 250 ML IV ONE (06:30)
[2017-10-30] MEDS: FUROSEMIDE INJ 10 MG/ML 4 ML VIAL IV SCH (09:00)
[2017-10-30] MEDS: EYE LUBRICANT OPTH OINT 3.5GM TUBE OP SCH ×2 (09:00→17:39)
[2017-10-30] MEDS ORDERED: NYSTATIN/TRIAMCINOLONE 15 GM CR TOP SCH (09:00)
[2017-10-30] MEDS: DOCUSATE SODIUM LIQD 100 MG/10 ML UDC NG SCH ×2 (09:00→17:40)
[2017-10-30] MEDS: FOLIC ACID 1 MG TAB PO SCH (09:00)
[2017-10-30] MEDS: NYSTATIN 15 GM POWDER UD BTL TOP SCH (09:00)
[2017-10-30 09:57] LABS: % IRON SATURATION 14 % (15-50); IRON 25 ug/dL (50-170); TOTAL IRON BINDING CAPACITY 179 ug/dL (261-478); TRANSFERRIN 128 mg/dL (180-382)
--- NOTE | 2017-10-30 11:22 | Diagnostic Imaging Report ---
PROCEDURE:US CHEST (INCL MEDIASTINUM) COMPARISON:[facility], , US CHEST (INCL MEDIASTINUM), 10/26/2017, 9:37. INDICATIONS:pleural effusion FINDINGS:There is a small right pleural effusion. Re-demonstration of a small loculated left pleural effusion. CONCLUSION:Bilateral small pleural effusions, loculated on the left. Marc Head M.D. Dictated by: Marc Head M.D. on 10/30/2017 at 11:25 Electronically approved by: Marc Head M.D. on 10/30/2017 at 11:25
[2017-10-30] MEDS ORDERED: LEVALBUTEROL HCL SOLN NEBU 1.25 MG/3 ML NEB INH SCH (13:00)
[2017-10-30] MEDS: LEVALBUTEROL HCL SOLN NEBU 0.63 MG/3 ML NEB IH SCH ×2 (14:02→19:30)
[2017-10-30] MEDS: PANTOPRAZOLE 40 MG 10ML VIAL IV SCH (14:56)
[2017-10-30] MEDS: AZITHROMYCIN 500MG/NS 250 ML 250 ML IV SCH (15:50)
[2017-10-30] MEDS: ENOXAPARIN 30 MG/0.3 ML SYR SC SCH (17:39)
--- NOTE | 2017-10-30 18:15 | Diagnostic Imaging Report ---
EXAM: Obstetric Pelvic Ultrasound INDICATION: Evaluate viability of . Patient intubated in ICU. COMPARISON: 10/25/2017. TECHNIQUE: Transabdominal and transvaginal evaluation of the pelvis was performed in the transverse and longitudinal planes. CLINICAL HISTORY: 37 year old A0; last menstrual period: Unknown. FINDINGS: Uterus: Orientation: Normal Size: 6.1 x 2.9 x 4.2 cm, enlarged Mass: None Cervix: Normal Gestational Sac: Location: Intrauterine Average sac diameter: 3.7 cm Estimated sonographic GA: Not calculated. Appearance: Abnormal in contour. Subchorionic hemorrhage: None Yolk sac: Not identified. Embryo/Fetus: Prior examination demonstrated a definite pole without cardiac activity. Today's examination demonstrates amorphous soft tissue within the gestational sac. Estimated sonographic GA: Not calculated. Cardiac activity: Not identified. Right ovary: Not visualized. Left ovary: Not visualized. Cul-de-sac: No free fluid IMPRESSION: Findings consistent with nonviable intrauterine . Change in appearance of contents within the gestational sac as detailed above. Signed by: Dr. Marc Head M.D. on 10/30/2017 6:12 PM
[2017-10-30] MEDS ORDERED: SODIUM CHLORIDE 0.9% 50ML 0 ML ONE (20:59)
[2017-10-31] VITALS (84 sets, daily range): BP systolic 110–171; BP diastolic 68–113
[2017-10-31] MEDS: LEVALBUTEROL HCL SOLN NEBU 0.63 MG/3 ML NEB IH SCH ×4 (00:15→19:08)
[2017-10-31] MEDS: MIDAZOLAM HCL 25 MG in SODIUM CHLORIDE 0.9% 50ML 45 ML IV PRN ×5 (01:55→23:25)
[2017-10-31 05:23] LABS: BASOPHILS # (AUTO) 0.1 (0.0-0.1); BASOPHILS % 0.6 % (0.0-1.0); EOSINOPHILS # (AUTO) 0.4 (0.0-0.4); EOSINOPHILS % 1.8 % (0.0-6.0); HEMATOCRIT 28.1 % (34.2-44.1); HEMOGLOBIN 9.1 g/dL (12.0-16.0); LYMPHOCYTES # (AUTO) 1.1 (1.0-3.2); LYMPHOCYTES % 5.8 % (18.0-39.1); MEAN CORPUSCULAR HEMOGLOBIN 25.8 pg (28-32); MEAN CORPUSCULAR HGB CONC 32.4 g/dL (31-35); MEAN CORPUSCULAR VOLUME 79.6 fL (81-99); MONOCYTES # (AUTO) 1.3 (0.2-0.8); MONOCYTES % 6.6 % (4.4-11.3); NEUTROPHILS # (AUTO) 13.2 (2.1-6.9); NEUTROPHILS % 68.9 % (38.7-80.0); PLATELET COUNT 230 x10e3/uL (140-360); RED BLOOD COUNT 3.53 x10e6/uL (3.6-5.1); RED CELL DISTRIBUTION WIDTH 18.2 % (11.7-14.4)
[2017-10-31] MEDS: PIPER-TAZ 3.375 GM 50 ML IV SCH ×3 (05:35→21:20)
[2017-10-31 05:48] LABS: ANION GAP 12.6 mmol/L (8-16); BLOOD UREA NITROGEN 20 mg/dL (7-26); BUN/CREATININE RATIO 24 (6-25); CALCIUM 8.6 mg/dL (8.4-10.2); CARBON DIOXIDE 29 mmol/L (22-29); CHLORIDE 107 mmol/L (98-107); CREATININE, SERUM 0.82 mg/dL (0.57-1.11); EST GLOMERULAR FILTRATION RATE > 60 ML/MIN (60-); GLUCOSE 134 mg/dL (74-118); POTASSIUM 3.6 mmol/L (3.5-5.1); SODIUM 145 mmol/L (136-145)
--- NOTE | 2017-10-31 06:16 | Diagnostic Imaging Report ---
EXAM: CHEST SINGLE (PORTABLE), AP 1 view INDICATION: Pneumonia COMPARISON: AP view of the chest October 30, 2017 FINDINGS: LINES/TUBES: Stable endotracheal tube, nasal/orogastric tube and right approach PICC. LUNGS: Stable consolidation right lung and near complete opacification of the left lung PLEURA: Indeterminate for effusion on the left HEART AND MEDIASTINUM: Obscured BONES AND SOFT TISSUES: No acute findings. IMPRESSION: No interval change Signed by: Dr. Oneyda Dewey M.D. on 10/31/2017 6:13 AM
[2017-10-31 06:32] LABS: BAND NEUTROPHILS % (MANUAL) 5 %; EOSINOPHILS % (MANUAL) 1 % (0-7); LYMPHOCYTES % (MANUAL) 11 % (19-48); MONOCYTES % (MANUAL) 9 % (3.4-9.0); NEUTROPHILS % (MANUAL) 74 % (40-74)
[2017-10-31 06:33] LABS: ANISOCYTOSIS SLIGHT; PLATELET ESTIMATE ADEQUATE; PLATELET MORPHOLOGY COMMENT NORMAL; RBC MORPHOLOGY COMMENT ABNORMAL
[2017-10-31] MEDS: FENTANYL CITRATE INJ 2,000 MCG in SODIUM CHLORIDE 0.9% 250ML 210 ML IV PRN ×3 (07:59→18:45)
[2017-10-31] MEDS: METOPROLOL TARTRATE INJ 1 MG/ML VIAL IV PRN ×2 (08:17→11:20)
[2017-10-31] MEDS: NYSTATIN 15 GM POWDER UD BTL TOP SCH (08:17)
[2017-10-31] MEDS: DOCUSATE SODIUM LIQD 100 MG/10 ML UDC NG SCH ×2 (08:17→17:29)
[2017-10-31] MEDS: EYE LUBRICANT OPTH OINT 3.5GM TUBE OP SCH ×2 (08:17→17:29)
[2017-10-31] MEDS: FUROSEMIDE INJ 10 MG/ML 4 ML VIAL IV SCH ×2 (08:17→17:29)
[2017-10-31] MEDS: FOLIC ACID 1 MG TAB PO SCH (08:17)
[2017-10-31] MEDS: PANTOPRAZOLE 40 MG 10ML VIAL IV SCH (08:17)
[2017-10-31] MEDS: HYDRALAZINE HCL 20 MG/ML VIAL IV PRN (09:55)
[2017-10-31] MEDS ORDERED: SODIUM CHLORIDE 0.9% 50ML 50 ML ONE ×2 (10:49→16:02)
[2017-10-31] MEDS: IRON SUCROSE 100 MG in SODIUM CHLORIDE 0.9% 100 ML 100 ML IV SCH (10:55)
[2017-10-31] MEDS: ACETAMINOPHEN 325 MG/10 ML UDC NG PRN ×2 (11:20→21:17)
[2017-10-31] MEDS: AZITHROMYCIN 500MG/NS 250 ML 250 ML IV SCH (16:08)
[2017-10-31] MEDS: ENOXAPARIN 30 MG/0.3 ML SYR SC SCH (17:29)
[2017-11-01] VITALS (81 sets, daily range): BP systolic 118–164; BP diastolic 68–109
[2017-11-01] MEDS: LEVALBUTEROL HCL SOLN NEBU 0.63 MG/3 ML NEB IH SCH ×4 (00:20→19:00)
[2017-11-01] MEDS: METOPROLOL TARTRATE INJ 1 MG/ML VIAL IV PRN ×3 (01:18→21:24)
[2017-11-01] MEDS: MIDAZOLAM HCL 25 MG in SODIUM CHLORIDE 0.9% 50ML 45 ML IV PRN ×8 (02:01→23:00)
[2017-11-01] MEDS: FENTANYL CITRATE INJ 2,000 MCG in SODIUM CHLORIDE 0.9% 250ML 210 ML IV PRN ×3 (03:39→19:22)
[2017-11-01 06:30] LABS: BASOPHILS # (AUTO) 0.1 (0.0-0.1); BASOPHILS % 0.3 % (0.0-1.0); EOSINOPHILS # (AUTO) 0.4 (0.0-0.4); EOSINOPHILS % 1.6 % (0.0-6.0); HEMATOCRIT 28.6 % (34.2-44.1); HEMOGLOBIN 9.3 g/dL (12.0-16.0); LYMPHOCYTES # (AUTO) 1.4 (1.0-3.2); LYMPHOCYTES % 5.7 % (18.0-39.1); MEAN CORPUSCULAR HEMOGLOBIN 26.4 pg (28-32); MEAN CORPUSCULAR HGB CONC 32.5 g/dL (31-35); MEAN CORPUSCULAR VOLUME 81.3 fL (81-99); MONOCYTES # (AUTO) 1.3 (0.2-0.8); MONOCYTES % 5.3 % (4.4-11.3); NEUTROPHILS # (AUTO) 16.3 (2.1-6.9); NEUTROPHILS % 65.3 % (38.7-80.0); PLATELET COUNT 296 x10e3/uL (140-360); RED BLOOD COUNT 3.52 x10e6/uL (3.6-5.1); RED CELL DISTRIBUTION WIDTH 18.6 % (11.7-14.4)
[2017-11-01] MEDS: PIPER-TAZ 3.375 GM 50 ML IV SCH ×3 (06:37→21:11)
[2017-11-01 06:58] LABS: ALANINE AMINOTRANSFERASE 138 IU/L (0-55); ALBUMIN 1.8 g/dL (3.5-5.0); ALBUMIN/GLOBULIN RATIO 0.4 (0.8-2.0); ALKALINE PHOSPHATASE 813 IU/L (40-150); ANION GAP 15.2 mmol/L (8-16); BLOOD UREA NITROGEN 20 mg/dL (7-26); BUN/CREATININE RATIO 24 (6-25); CARBON DIOXIDE 32 mmol/L (22-29); CHLORIDE 104 mmol/L (98-107); CREATININE, SERUM 0.82 mg/dL (0.57-1.11); EST GLOMERULAR FILTRATION RATE > 60 ML/MIN (60-); GLUCOSE 129 mg/dL (74-118); POTASSIUM 3.2 mmol/L (3.5-5.1); SODIUM 148 mmol/L (136-145)
[2017-11-01] MEDS: FOLIC ACID 1 MG TAB PO SCH (08:12)
[2017-11-01] MEDS: EYE LUBRICANT OPTH OINT 3.5GM TUBE OP SCH ×2 (08:12→16:10)
[2017-11-01] MEDS: NYSTATIN 15 GM POWDER UD BTL TOP SCH (08:12)
[2017-11-01] MEDS: PANTOPRAZOLE 40 MG 10ML VIAL IV SCH (08:12)
[2017-11-01] MEDS: FUROSEMIDE INJ 10 MG/ML 4 ML VIAL IV SCH ×2 (08:12→16:40)
[2017-11-01] MEDS: DOCUSATE SODIUM LIQD 100 MG/10 ML UDC NG SCH ×2 (08:12→16:10)
[2017-11-01 08:45] LABS: EOSINOPHILS % (MANUAL) 2 % (0-7)
[2017-11-01 08:47] LABS: BAND NEUTROPHILS % (MANUAL) 8 %; LYMPHOCYTES % (MANUAL) 9 % (19-48); METAMYELOCYTES % (MANUAL) 2 % (0-0); NEUTROPHILS % (MANUAL) 72 % (40-74)
[2017-11-01 08:48] LABS: MONOCYTES % (MANUAL) 7 % (3.4-9.0); NUCLEATED RED BLOOD CELLS 3; PLATELET ESTIMATE ADEQUATE; PLATELET MORPHOLOGY COMMENT NORMAL; RBC MORPHOLOGY COMMENT ABNORMAL
[2017-11-01 08:56] LABS: POLYCHROMASIA FEW
--- NOTE | 2017-11-01 10:24 | Diagnostic Imaging Report ---
EXAM: CHEST SINGLE (PORTABLE), AP 1 view INDICATION: COMPARISON: 10/31/2017 FINDINGS: LINES/TUBES: Stable endotracheal tube, nasal/orogastric tube and right approach PICC. LUNGS: Stable consolidation right lung and near complete opacification of the left lung PLEURA: Indeterminate for effusion on the left HEART AND MEDIASTINUM: Obscured BONES AND SOFT TISSUES: No acute findings. IMPRESSION: 1. Stable chest. 2. Tubes and lines are stable. Signed by: Dr. Preston Mendez M.D. on 11/01/2017 10:20 AM
[2017-11-01] MEDS: IRON SUCROSE 100 MG in SODIUM CHLORIDE 0.9% 100 ML 100 ML IV SCH (11:00)
[2017-11-01] MEDS ORDERED: ALTEPLASE RECOMBINANT 2 MG/2 ML VIAL IV PRN (11:45)
[2017-11-01] MEDS ORDERED: POTASSIUM CHLORIDE 20MEQ/100ML 200 ML IV ONE (11:45)
[2017-11-01] MEDS: LEVOFLOXACIN 500MG/D5W 100ML 100 ML IV SCH (14:14)
[2017-11-01] MEDS: ENOXAPARIN 30 MG/0.3 ML SYR SC SCH (16:40)
[2017-11-02] VITALS (84 sets, daily range): BP systolic 110–183; BP diastolic 60–132
[2017-11-02] MEDS: ACETAMINOPHEN 325 MG/10 ML UDC NG PRN (00:07)
[2017-11-02] MEDS: LEVALBUTEROL HCL SOLN NEBU 0.63 MG/3 ML NEB IH SCH ×4 (01:30→19:10)
[2017-11-02] MEDS: MIDAZOLAM HCL 25 MG in SODIUM CHLORIDE 0.9% 50ML 45 ML IV PRN ×4 (02:26→21:42)
[2017-11-02] MEDS: FENTANYL CITRATE INJ 2,000 MCG in SODIUM CHLORIDE 0.9% 250ML 210 ML IV PRN ×2 (02:45→19:00)
[2017-11-02] MEDS: PIPER-TAZ 3.375 GM 50 ML IV SCH ×2 (05:38→16:02)
[2017-11-02] MEDS: DOCUSATE SODIUM LIQD 100 MG/10 ML UDC NG SCH ×2 (09:00→16:03)
[2017-11-02 09:43] LABS: FREE THYROXINE INDEX 0.896 (1.4-3.8); THYROID STIMULATING HORMONE 15.038 uIU/mL (0.350-4.940)
[2017-11-02] MEDS: FOLIC ACID 1 MG TAB PO SCH (09:48)
[2017-11-02] MEDS: LEVOTHYROXINE SODIUM 125 MCG TAB PO SCH (09:48)
[2017-11-02] MEDS: PANTOPRAZOLE 40 MG 10ML VIAL IV SCH (09:48)
[2017-11-02] MEDS: EYE LUBRICANT OPTH OINT 3.5GM TUBE OP SCH ×2 (09:48→16:03)
[2017-11-02] MEDS: FUROSEMIDE INJ 10 MG/ML 4 ML VIAL IV SCH ×2 (09:48→17:32)
[2017-11-02] MEDS: NYSTATIN 15 GM POWDER UD BTL TOP SCH (09:49)
[2017-11-02] MEDS: TOBRAMYCIN 0.3% (OPTH) 5 ML BTL OP SCH ×3 (09:49→23:28)
[2017-11-02 09:56] LABS: BASOPHILS # (AUTO) 0.2 (0.0-0.1); BASOPHILS % 0.6 % (0.0-1.0); EOSINOPHILS # (AUTO) 0.4 (0.0-0.4); EOSINOPHILS % 1.4 % (0.0-6.0); HEMOGLOBIN 8.8 g/dL (12.0-16.0); LYMPHOCYTES # (AUTO) 1.8 (1.0-3.2); MEAN CORPUSCULAR HGB CONC 31.4 g/dL (31-35); MEAN CORPUSCULAR VOLUME 82.6 fL (81-99); MONOCYTES # (AUTO) 1.7 (0.2-0.8); MONOCYTES % 6.6 % (4.4-11.3); NEUTROPHILS # (AUTO) 17.1 (2.1-6.9); NEUTROPHILS % 66.8 % (38.7-80.0); PLATELET COUNT 344 x10e3/uL (140-360); RED BLOOD COUNT 3.39 x10e6/uL (3.6-5.1)
[2017-11-02 10:10] LABS: ALANINE AMINOTRANSFERASE 96 IU/L (0-55); ALBUMIN 1.9 g/dL (3.5-5.0); ALBUMIN/GLOBULIN RATIO 0.4 (0.8-2.0); ALKALINE PHOSPHATASE 670 IU/L (40-150); ANION GAP 14.5 mmol/L (8-16); BLOOD UREA NITROGEN 21 mg/dL (7-26); BUN/CREATININE RATIO 25 (6-25); CALCIUM 8.6 mg/dL (8.4-10.2); CARBON DIOXIDE 35 mmol/L (22-29); CHLORIDE 104 mmol/L (98-107); CREATININE, SERUM 0.84 mg/dL (0.57-1.11); EST GLOMERULAR FILTRATION RATE > 60 ML/MIN (60-); GLUCOSE 113 mg/dL (74-118); POTASSIUM 3.5 mmol/L (3.5-5.1); SODIUM 150 mmol/L (136-145)
[2017-11-02 10:48] LABS: EOSINOPHILS % (MANUAL) 1 % (0-7); LYMPHOCYTES % (MANUAL) 7 % (19-48); METAMYELOCYTES % (MANUAL) 2 % (0-0); MONOCYTES % (MANUAL) 6 % (3.4-9.0); MYELOCYTES % (MANUAL) 1 % (0-0); NEUTROPHILS % (MANUAL) 81 % (40-74); PROMYELOCYTES % (MANUAL) 2 % (0-0)
[2017-11-02 10:50] LABS: ANISOCYTOSIS SLIGHT; HYPOCHROMASIA SLIGHT; PLATELET ESTIMATE ADEQUATE; PLATELET MORPHOLOGY COMMENT FEW LARGE; RBC MORPHOLOGY COMMENT ABNORMAL
[2017-11-02 10:51] LABS: SMUDGE CELLS FEW
--- NOTE | 2017-11-02 10:51 | Diagnostic Imaging Report ---
PROCEDURE:GALLBLADDER ULTRASOUND COMPARISON:None. INDICATIONS:r/o cholecystitis Technique: Grayscale and color Doppler ultrasound of the FINDINGS: Right liver span 18.7 cm. Increased echogenicity with a questionably nodular contour. Portal vein diameter 0.7 cm; normal flow direction. Normal gallbladder. Wall thickness 0.2 cm. Common bile duct diameter 0.3 cm. Imaged portions of the inferior vena cava, abdominal aorta, pancreas and right kidney are grossly unremarkable. CONCLUSION: Normal gallbladder. Hepatomegaly with steatosis. Questionable liver nodularity suggesting early cirrhosis. Dictated by: Xavier Nieves M.D. on 11/02/2017 at 10:55 Electronically approved by: Xavier Nieves M.D. on 11/02/2017 at 10:55
[2017-11-02] MEDS: FLUCONAZOLE 200 MG/100 ML 100 ML IV SCH (12:00)
[2017-11-02] MEDS: LEVOFLOXACIN 500MG/D5W 100ML 100 ML IV SCH (12:00)
[2017-11-02] MEDS: IRON SUCROSE 100 MG in SODIUM CHLORIDE 0.9% 100 ML 100 ML IV SCH (13:02)
[2017-11-02] MEDS ORDERED: SODIUM CHLORIDE 0.9% 1000ML 1,000 ML ONE (13:13)
--- NOTE | 2017-11-02 14:04 | Progress Note ---
Today, I visited the patient and examined and reassessed her. I had a very long discussion with her mother. I answered all her questions. Also, discussed the case with Dr. Owens and Dr. George and the nurse. Time spent 1 hour. This patient who is a 37-year-old female with a history of Gooden's syndrome comes here with shortness of breath. She was diagnosed with pneumonia. She was diagnosed with legionella, but she also was found to be . However, unfortunately she lost her . The patient remains in the intensive care unit on the ventilator. Sedated and intubated with fever. Her blood cultures with no growth. Her sputum is showing yeast. Her white count is 25.58, hemoglobin 8.8, hematocrit 28, and her platelets are 344,000. Her vancomycin trough has been within normal limits. Her chemistry is sodium 150, potassium 3.5, creatinine 0.84. PHYSICAL EXAMINATION GENERAL: She is intubated and sedated. VITALS: Stable. Currently having fever of 100.6. HEENT: Normocephalic. NECK: Supple. CHEST: Few crackles bilaterally coarse. HEART: S1 and S2. No S3, S4 or murmurs. ABDOMEN: Soft. IMPRESSION 1. Sepsis on admission. 2. Pneumonia. 3. Legionella. 4. Respiratory failure. 5. with loss of . 6. Elevated liver enzymes: Ultrasound suggestive of early cirrhosis. Hepatitis A, B and C has been negative. 7. Hypoalbuminemia. 8. Hypothyroidism: She is on replacement. From infectious point of view, she is currently on Levaquin and Zosyn. Will get CT of the abdomen and pelvis to rule out any intra-abdominal process. Recheck CBC. Recheck Chem panel. Continue supportive care. Discussed with the family at length. Will follow. Job#: [id number] LAINEY
--- NOTE | 2017-11-02 15:39 | Diagnostic Imaging Report ---
EXAM: CT Chest, Abdomen and Pelvis WITH contrast INDICATION: Sepsis. Pneumonia. Patient intubated and ventilated. COMPARISON: None. TECHNIQUE: Chest, abdomen and pelvis were scanned utilizing a multidetector helical scanner from the lung apex to the pubic symphysis before and after administration of IV contrast. Coronal and sagittal reformations were obtained. Routine protocol was performed. Scan was performed when during portal venous phase. IV CONTRAST: 100 cc Isovue-370. ORAL CONTRAST: Water RADIATION DOSE: Total DLP: 930.54 mGy*cm Estimated effective dose: (DLP x 0.015 x size factor) mSv COMPLICATIONS: None FINDINGS: LINES and TUBES: Endotracheal tube is present with distal tip in satisfactory position well above the martha. NG tube with distal tip in the mid gastric body, also in adequate position. There is a Tristan catheter with distal tip within the left lateral aspect of the bladder lumen. Right upper extremity PICC with distal tip in the cavoatrial junction. LUNGS AND AIRWAYS: Diffuse patchy consolidation of the left lung. Patchy consolidation in the right middle lobe. Right basilar subsegmental compressive atelectasis. Bullous emphysematous changes in the right upper lobe. Airways are normal. PLEURA: Bilateral small pleural effusions, right larger than left. HEART AND MEDIASTINUM: The thyroid gland is normal. No mediastinal, hilar or axillary lymphadenopathy. The heart is normal in size.. There is no pericardial effusion. HEPATOBILIARY: There is focal fatty infiltration adjacent to the falciform ligament. About the falciform ligament fissure. No focal hepatic lesions. No biliary ductal dilation. GALLBLADDER: No radio-opaque stones or sludge. No wall thickening. SPLEEN: No splenomegaly. 1.0 cm low-attenuation lesion in the anterior spleen on image 52 series 2 most likely benign in etiology. PANCREAS: No focal masses or ductal dilatation. ADRENALS: No adrenal nodules. KIDNEYS/URETERS: Kidneys enhance symmetrically. No hydronephrosis. No cystic or solid mass lesions. No stones. GI TRACT: No abnormal distention, wall thickening, or evidence of bowel obstruction. Appendix is normal. PELVIC ORGANS/BLADDER: Mild diffuse thickening of the endometrium. LYMPH NODES: No lymphadenopathy. VESSELS: Unremarkable. PERITONEUM / RETROPERITONEUM: No free air or fluid. BONES: No acute osseous abnormality. SOFT TISSUES: Diffuse subcutaneous edema involving flanks and abdomen suggesting anasarca. Mild periumbilical skin thickening. IMPRESSION: 1. Consolidative pneumonia involving the entire left lung. Multifocal right lung pneumonia. 2. Bilateral small pleural effusions. 3. No acute process within the abdomen and pelvis. Signed by: Dr. Marc Head M.D. on 11/02/2017 3:36 PM
[2017-11-02] MEDS ORDERED: SODIUM CHLORIDE 0.9% 50ML 50 ML ONE (19:19)
[2017-11-02] MEDS ORDERED: IOPAMIDOL 370 MG/ML 200 ML INFUS..BTL INJ ONE (19:19)
[2017-11-03] VITALS (84 sets, daily range): BP systolic 106–177; BP diastolic 57–105
[2017-11-03] MEDS: MIDAZOLAM HCL 25 MG in SODIUM CHLORIDE 0.9% 50ML 45 ML IV PRN ×4 (00:39→22:59)
[2017-11-03] MEDS: LEVALBUTEROL HCL SOLN NEBU 0.63 MG/3 ML NEB IH SCH ×4 (01:15→19:00)
[2017-11-03 05:42] LABS: BASOPHILS # (AUTO) 0.1 (0.0-0.1); BASOPHILS % 0.4 % (0.0-1.0); EOSINOPHILS # (AUTO) 0.3 (0.0-0.4); EOSINOPHILS % 1.4 % (0.0-6.0); HEMATOCRIT 25.9 % (34.2-44.1); HEMOGLOBIN 7.8 g/dL (12.0-16.0); LYMPHOCYTES # (AUTO) 1.3 (1.0-3.2); LYMPHOCYTES % 6.8 % (18.0-39.1); MEAN CORPUSCULAR HGB CONC 30.1 g/dL (31-35); MEAN CORPUSCULAR VOLUME 86.3 fL (81-99); MONOCYTES # (AUTO) 1.6 (0.2-0.8); MONOCYTES % 8.1 % (4.4-11.3); NEUTROPHILS # (AUTO) 14.5 (2.1-6.9); NEUTROPHILS % 74.6 % (38.7-80.0); PLATELET COUNT 350 x10e3/uL (140-360); RED CELL DISTRIBUTION WIDTH 19.1 % (11.7-14.4)
[2017-11-03] MEDS: TOBRAMYCIN 0.3% (OPTH) 5 ML BTL OP SCH ×3 (05:52→17:51)
[2017-11-03] MEDS: LEVOTHYROXINE SODIUM 125 MCG TAB PO SCH (05:52)
[2017-11-03 06:00] LABS: ALANINE AMINOTRANSFERASE 73 IU/L (0-55); ALBUMIN 1.9 g/dL (3.5-5.0); ALBUMIN/GLOBULIN RATIO 0.4 (0.8-2.0); ALKALINE PHOSPHATASE 595 IU/L (40-150); ANION GAP 11.5 mmol/L (8-16); BLOOD UREA NITROGEN 21 mg/dL (7-26); BUN/CREATININE RATIO 25 (6-25); CALCIUM 8.3 mg/dL (8.4-10.2); CARBON DIOXIDE 38 mmol/L (22-29); CHLORIDE 101 mmol/L (98-107); CREATININE, SERUM 0.84 mg/dL (0.57-1.11); EST GLOMERULAR FILTRATION RATE > 60 ML/MIN (60-); GLUCOSE 106 mg/dL (74-118); POTASSIUM 3.5 mmol/L (3.5-5.1); SODIUM 147 mmol/L (136-145)
--- NOTE | 2017-11-03 06:45 | Diagnostic Imaging Report ---
CHEST SINGLE (PORTABLE), 11/03/2017 5:00 AM Technique: CHEST SINGLE (PORTABLE) Comparison: 11/01/2017. Clinical history: Mechanical ventilation Findings: See Impression Impression: 1. Lines/Tubes: ET tube unchanged at the thoracic inlet. Stable visualized right PICC subdiaphragmatic NG tube. 2. Unchanged consolidation throughout the left lung and extensive right lung opacities. Underlying pleural effusions. Signed by: Dr Kendy Domingo MD on 11/03/2017 6:41 AM
[2017-11-03 06:51] LABS: EOSINOPHILS % (MANUAL) 2 % (0-7); LYMPHOCYTES % (MANUAL) 12 % (19-48); METAMYELOCYTES % (MANUAL) 4 % (0-0); MONOCYTES % (MANUAL) 3 % (3.4-9.0); MYELOCYTES % (MANUAL) 1 % (0-0); NEUTROPHILS % (MANUAL) 78 % (40-74)
[2017-11-03 06:52] LABS: ANISOCYTOSIS SLIGHT; HYPOCHROMASIA MODERATE; PLATELET ESTIMATE ADEQUATE; PLATELET MORPHOLOGY COMMENT FEW LARGE; RBC MORPHOLOGY COMMENT ABNORMAL
[2017-11-03] MEDS: EYE LUBRICANT OPTH OINT 3.5GM TUBE OP SCH ×2 (09:00→17:51)
[2017-11-03] MEDS: FUROSEMIDE INJ 10 MG/ML 4 ML VIAL IV SCH ×2 (09:00→17:51)
[2017-11-03] MEDS: FOLIC ACID 1 MG TAB PO SCH (09:00)
[2017-11-03] MEDS: PANTOPRAZOLE 40 MG 10ML VIAL IV SCH (09:00)
[2017-11-03] MEDS: DOCUSATE SODIUM LIQD 100 MG/10 ML UDC NG SCH ×2 (09:00→17:00)
[2017-11-03] MEDS ORDERED: POTASSIUM CHLORIDE 10MEQ/100ML 200 ML IV ONE (09:30)
[2017-11-03] MEDS ORDERED: SODIUM CHLORIDE 0.9% 250ML 250 ML IV ONE (09:30)
[2017-11-03] MEDS: DEXMEDETOMIDINE HCL 200 MCG in SODIUM CHLORIDE 0.9% 50ML 48 ML IV SCH ×4 (09:54→23:40)
[2017-11-03] MEDS ORDERED: MISOPROSTOL 100 MCG TAB PO PRN (10:00)
[2017-11-03] MEDS: NYSTATIN 15 GM POWDER UD BTL TOP SCH (11:34)
[2017-11-03] MEDS: LEVOFLOXACIN 750MG/D5W 150ML 150 ML IV SCH (13:29)
[2017-11-03] MEDS: FLUCONAZOLE 200 MG/100 ML 100 ML IV SCH (13:29)
[2017-11-03] MEDS: CIPROFLOXACIN HCL (OPTH OINT) 3.5 GM TUBE OP SCH (21:30)
[2017-11-03] MEDS: FENTANYL CITRATE INJ 2,000 MCG in SODIUM CHLORIDE 0.9% 250ML 210 ML IV PRN (22:34)
[2017-11-04] VITALS (72 sets, daily range): BP systolic 107–169; BP diastolic 55–108
[2017-11-04] MEDS: LEVALBUTEROL HCL SOLN NEBU 0.63 MG/3 ML NEB IH SCH ×4 (02:55→19:05)
[2017-11-04] MEDS: DEXMEDETOMIDINE HCL 200 MCG in SODIUM CHLORIDE 0.9% 50ML 48 ML IV SCH ×3 (03:00→16:58)
[2017-11-04] MEDS: MIDAZOLAM HCL 25 MG in SODIUM CHLORIDE 0.9% 50ML 45 ML IV PRN ×3 (03:06→16:31)
[2017-11-04] MEDS: LEVOTHYROXINE SODIUM 125 MCG TAB PO SCH (05:54)
[2017-11-04 06:07] LABS: BASOPHILS # (AUTO) 0.1 (0.0-0.1); BASOPHILS % 0.4 % (0.0-1.0); EOSINOPHILS # (AUTO) 0.2 (0.0-0.4); HEMATOCRIT 29.1 % (34.2-44.1); HEMOGLOBIN 8.8 g/dL (12.0-16.0); LYMPHOCYTES # (AUTO) 1.1 (1.0-3.2); LYMPHOCYTES % 5.4 % (18.0-39.1); MEAN CORPUSCULAR HEMOGLOBIN 26.7 pg (28-32); MEAN CORPUSCULAR HGB CONC 30.2 g/dL (31-35); MEAN CORPUSCULAR VOLUME 88.2 fL (81-99); MONOCYTES # (AUTO) 1.4 (0.2-0.8); MONOCYTES % 6.8 % (4.4-11.3); PLATELET COUNT 307 x10e3/uL (140-360); RED CELL DISTRIBUTION WIDTH 18.8 % (11.7-14.4)
--- NOTE | 2017-11-04 06:40 | Diagnostic Imaging Report ---
CHEST SINGLE (PORTABLE), 11/04/2017 5:00 AM Technique: CHEST SINGLE (PORTABLE) Comparison: previous day. Clinical history: Mechanical ventilation Findings: See Impression Impression: 1. Lines/Tubes: ET tube unchanged at the thoracic inlet. Stable visualized right PICC subdiaphragmatic NG tube. 2. Unchanged diffuse consolidation throughout the left lung and patchy right lung opacities. Small layering pleural effusions, better seen at CT. Signed by: Dr Kendy Domingo MD on 11/04/2017 6:37 AM
[2017-11-04 06:58] LABS: ALANINE AMINOTRANSFERASE 63 IU/L (0-55); ALBUMIN 2.1 g/dL (3.5-5.0); ALBUMIN/GLOBULIN RATIO 0.5 (0.8-2.0); ALKALINE PHOSPHATASE 538 IU/L (40-150); ANION GAP 12.3 mmol/L (8-16); BLOOD UREA NITROGEN 24 mg/dL (7-26); BUN/CREATININE RATIO 30 (6-25); CALCIUM 8.7 mg/dL (8.4-10.2); CARBON DIOXIDE 34 mmol/L (22-29); CHLORIDE 105 mmol/L (98-107); EST GLOMERULAR FILTRATION RATE > 60 ML/MIN (60-); GLUCOSE 129 mg/dL (74-118); POTASSIUM 3.3 mmol/L (3.5-5.1); SODIUM 148 mmol/L (136-145)
[2017-11-04] MEDS: FENTANYL CITRATE INJ 2,000 MCG in SODIUM CHLORIDE 0.9% 250ML 210 ML IV PRN ×2 (07:29→16:58)
[2017-11-04 07:37] LABS: LYMPHOCYTES % (MANUAL) 6 % (19-48); MONOCYTES % (MANUAL) 4 % (3.4-9.0); MYELOCYTES % (MANUAL) 1 % (0-0); NEUTROPHILS % (MANUAL) 89 % (40-74); NUCLEATED RED BLOOD CELLS 1
[2017-11-04 07:38] LABS: HYPOCHROMASIA SLIGHT
[2017-11-04 07:39] LABS: ANISOCYTOSIS MODERATE; PLATELET ESTIMATE ADEQUATE; RBC MORPHOLOGY COMMENT ABNORMAL
[2017-11-04 07:40] LABS: PLATELET MORPHOLOGY COMMENT FEW LARGE
[2017-11-04] MEDS ORDERED: DEXAMETHASONE SOD PHOS INJ 4 MG/ML VIAL IV ONE (08:45)
[2017-11-04 09:23] LABS: ABG HCO3 37 mmol/L (23-28); ABG PCO2 46 mmHg (41-51); ABG PH 7.51 (7.31-7.41); ABG PO2 73 mmHg (80-105)
[2017-11-04] MEDS: CIPROFLOXACIN HCL (OPTH OINT) 3.5 GM TUBE OP SCH ×2 (09:31→16:34)
[2017-11-04] MEDS: PANTOPRAZOLE 40 MG 10ML VIAL IV SCH (09:31)
[2017-11-04] MEDS: FUROSEMIDE INJ 10 MG/ML 4 ML VIAL IV SCH ×2 (09:31→16:49)
[2017-11-04] MEDS: NYSTATIN 15 GM POWDER UD BTL TOP SCH (09:32)
[2017-11-04] MEDS: EYE LUBRICANT OPTH OINT 3.5GM TUBE OP SCH ×2 (09:32→17:55)
[2017-11-04] MEDS: DOCUSATE SODIUM LIQD 100 MG/10 ML UDC NG SCH ×2 (09:44→16:49)
[2017-11-04] MEDS: FOLIC ACID 1 MG TAB PO SCH (09:44)
[2017-11-04] MEDS: LEVOFLOXACIN 750MG/D5W 150ML 150 ML IV SCH (11:00)
[2017-11-04] MEDS: FLUCONAZOLE 200 MG/100 ML 100 ML IV SCH (12:00)
[2017-11-04] MEDS: HYDRALAZINE HCL 20 MG/ML VIAL IV PRN (13:18)
[2017-11-04] MEDS ORDERED: POTASSIUM CHLORIDE 20MEQ/100ML 100 ML IV ONE (18:45)
[2017-11-04] MEDS: ACETAMINOPHEN 325 MG/10 ML UDC NG PRN (19:10)
[2017-11-05] VITALS (79 sets, daily range): BP systolic 127–177; BP diastolic 75–133
[2017-11-05] MEDS: ACETAMINOPHEN 325 MG/10 ML UDC NG PRN ×2 (00:11→05:54)
[2017-11-05] MEDS: FENTANYL CITRATE INJ 2,000 MCG in SODIUM CHLORIDE 0.9% 250ML 210 ML IV PRN (01:33)
[2017-11-05] MEDS: MIDAZOLAM HCL 25 MG in SODIUM CHLORIDE 0.9% 50ML 45 ML IV PRN (02:14)
[2017-11-05] MEDS: LEVALBUTEROL HCL SOLN NEBU 0.63 MG/3 ML NEB IH SCH ×4 (02:30→19:20)
[2017-11-05] MEDS: DEXMEDETOMIDINE HCL 200 MCG in SODIUM CHLORIDE 0.9% 50ML 48 ML IV SCH ×3 (04:26)
[2017-11-05] MEDS: LEVOTHYROXINE SODIUM 125 MCG TAB PO SCH (05:54)
[2017-11-05 08:09] LABS: BASOPHILS # (AUTO) 0.1 (0.0-0.1); BASOPHILS % 0.3 % (0.0-1.0); HEMATOCRIT 29.5 % (34.2-44.1); LYMPHOCYTES # (AUTO) 1.3 (1.0-3.2); LYMPHOCYTES % 5.2 % (18.0-39.1); MEAN CORPUSCULAR HEMOGLOBIN 27.1 pg (28-32); MEAN CORPUSCULAR HGB CONC 30.5 g/dL (31-35); MEAN CORPUSCULAR VOLUME 88.9 fL (81-99); MONOCYTES # (AUTO) 1.6 (0.2-0.8); MONOCYTES % 6.6 % (4.4-11.3); NEUTROPHILS # (AUTO) 21.3 (2.1-6.9); NEUTROPHILS % 85.9 % (38.7-80.0); PLATELET COUNT 406 x10e3/uL (140-360); RED BLOOD COUNT 3.32 x10e6/uL (3.6-5.1); RED CELL DISTRIBUTION WIDTH 19.6 % (11.7-14.4)
[2017-11-05] MEDS: DOCUSATE SODIUM LIQD 100 MG/10 ML UDC NG SCH ×2 (08:14→16:17)
[2017-11-05] MEDS: FUROSEMIDE INJ 10 MG/ML 4 ML VIAL IV SCH ×2 (08:14→16:50)
[2017-11-05] MEDS: CIPROFLOXACIN HCL (OPTH OINT) 3.5 GM TUBE OP SCH ×3 (08:14→22:00)
[2017-11-05] MEDS: PANTOPRAZOLE 40 MG 10ML VIAL IV SCH (08:14)
[2017-11-05] MEDS: EYE LUBRICANT OPTH OINT 3.5GM TUBE OP SCH ×2 (08:15→17:34)
[2017-11-05] MEDS: FOLIC ACID 1 MG TAB PO SCH (08:15)
[2017-11-05] MEDS: NYSTATIN 15 GM POWDER UD BTL TOP SCH (08:15)
[2017-11-05 08:37] LABS: ALANINE AMINOTRANSFERASE 59 IU/L (0-55); ALBUMIN 2.4 g/dL (3.5-5.0); ALBUMIN/GLOBULIN RATIO 0.5 (0.8-2.0); ALKALINE PHOSPHATASE 449 IU/L (40-150); ANION GAP 13.6 mmol/L (8-16); BLOOD UREA NITROGEN 27 mg/dL (7-26); BUN/CREATININE RATIO 29 (6-25); CALCIUM 9.1 mg/dL (8.4-10.2); CARBON DIOXIDE 33 mmol/L (22-29); CHLORIDE 106 mmol/L (98-107); CREATININE, SERUM 0.94 mg/dL (0.57-1.11); EST GLOMERULAR FILTRATION RATE > 60 ML/MIN (60-); GLUCOSE 157 mg/dL (74-118); POTASSIUM 3.6 mmol/L (3.5-5.1); SODIUM 149 mmol/L (136-145)
--- NOTE | 2017-11-05 09:44 | Diagnostic Imaging Report ---
PROCEDURE:CHEST SINGLE (PORTABLE) TECHNIQUE:Portable AP chest INDICATION:Endotracheal tube COMPARISON:Patients [facility], DX, CHEST SINGLE (PORTABLE), 11/04/2017, 6:07. FINDINGS: See conclusion. CONCLUSION: 1. Right PICC terminating in the low SVC. 2. Severely limited evaluation of the endotracheal tube given motion artifact. The tip appears at the thoracic inlet (level of clavicles) about 8 cm from the martha. 3. Bilateral (left greater than right) airspace opacity consistent with pneumonia. 4. Small pleural effusions. 5. The enteric tube is not conspicuous, likely due to motion. Dictated by: Xavier Nieves M.D. on 11/05/2017 at 9:48 Electronically approved by: Xavier Nieves M.D. on 11/05/2017 at 9:48
[2017-11-05] MEDS ORDERED: VANCOMYCIN 1GM/NS 250 ML 250 ML IV ONE (10:30)
[2017-11-05] MEDS: METRONIDAZOLE 500MG/NS 100ML 100 ML IV SCH ×3 (10:30→21:46)
[2017-11-05 10:31] LABS: ANISOCYTOSIS SLIGHT; EOSINOPHILS % (MANUAL) 1 % (0-7); HYPOCHROMASIA SLIGHT; LYMPHOCYTES % (MANUAL) 4 % (19-48); MONOCYTES % (MANUAL) 5 % (3.4-9.0); NEUTROPHILS % (MANUAL) 89 % (40-74); PLATELET ESTIMATE ADEQUATE; PLATELET MORPHOLOGY COMMENT NORMAL; RBC MORPHOLOGY COMMENT ABNORMAL
[2017-11-05 10:32] LABS: SMUDGE CELLS FEW
[2017-11-05] MEDS: CEFEPIME HCL 1 GM VIAL IV SCH ×2 (10:58→23:00)
[2017-11-05] MEDS: VANCOMYCIN 250MG/5ML ORAL SOLN PO SCH ×3 (12:00→23:00)
[2017-11-05 12:23] LABS: ABG HCO3 35 mmol/L (23-28); ABG PCO2 43 mmHg (41-51); ABG PH 7.52 (7.31-7.41); ABG PO2 75 mmHg (80-105)
[2017-11-05] MEDS: LEVOFLOXACIN 750MG/D5W 150ML 150 ML IV SCH (12:51)
[2017-11-05] MEDS ORDERED: SODIUM CHLORIDE 0.9% 250ML 250 ML ONE (13:12)
[2017-11-05] MEDS: FLUCONAZOLE 200 MG/100 ML 100 ML IV SCH (14:19)
[2017-11-05] MEDS ORDERED: ACETAMINOPHEN 1000 MG/100 ML IV PRN (15:45)
[2017-11-06] VITALS (55 sets, daily range): BP systolic 129–185; BP diastolic 79–126
[2017-11-06] MEDS: LEVALBUTEROL HCL SOLN NEBU 0.63 MG/3 ML NEB IH SCH ×4 (01:05→19:06)
[2017-11-06] MEDS: METOPROLOL TARTRATE INJ 1 MG/ML VIAL IV PRN ×2 (04:31→09:00)
[2017-11-06] MEDS: LEVOTHYROXINE SODIUM 125 MCG TAB PO SCH (05:25)
[2017-11-06] MEDS: VANCOMYCIN 250MG/5ML ORAL SOLN PO SCH ×3 (05:25→18:00)
[2017-11-06 05:27] LABS: BASOPHILS # (AUTO) 0.1 (0.0-0.1); BASOPHILS % 0.5 % (0.0-1.0); EOSINOPHILS % 0.2 % (0.0-6.0); HEMATOCRIT 32.2 % (34.2-44.1); HEMOGLOBIN 9.8 g/dL (12.0-16.0); LYMPHOCYTES # (AUTO) 0.8 (1.0-3.2); LYMPHOCYTES % 3.9 % (18.0-39.1); MEAN CORPUSCULAR HEMOGLOBIN 26.9 pg (28-32); MEAN CORPUSCULAR HGB CONC 30.4 g/dL (31-35); MEAN CORPUSCULAR VOLUME 88.5 fL (81-99); MONOCYTES # (AUTO) 1.4 (0.2-0.8); MONOCYTES % 6.9 % (4.4-11.3); NEUTROPHILS # (AUTO) 17.5 (2.1-6.9); NEUTROPHILS % 87.1 % (38.7-80.0); PLATELET COUNT 483 x10e3/uL (140-360); RED BLOOD COUNT 3.64 x10e6/uL (3.6-5.1); RED CELL DISTRIBUTION WIDTH 19.8 % (11.7-14.4)
[2017-11-06 05:53] LABS: ANION GAP 15.9 mmol/L (8-16); BLOOD UREA NITROGEN 20 mg/dL (7-26); BUN/CREATININE RATIO 24 (6-25); CALCIUM 9.2 mg/dL (8.4-10.2); CARBON DIOXIDE 30 mmol/L (22-29); CHLORIDE 105 mmol/L (98-107); CREATININE, SERUM 0.85 mg/dL (0.57-1.11); EST GLOMERULAR FILTRATION RATE > 60 ML/MIN (60-); GLUCOSE 98 mg/dL (74-118); SODIUM 148 mmol/L (136-145)
[2017-11-06 05:59] LABS: POTASSIUM 2.9 mmol/L (3.5-5.1)
[2017-11-06] MEDS: METRONIDAZOLE 500MG/NS 100ML 100 ML IV SCH ×3 (06:08→21:47)
[2017-11-06] MEDS: DOCUSATE SODIUM LIQD 100 MG/10 ML UDC NG SCH ×2 (08:21→17:00)
[2017-11-06] MEDS ORDERED: POTASSIUM CHLORIDE 20MEQ/100ML 400 ML IV ONE (09:45)
[2017-11-06] MEDS: EYE LUBRICANT OPTH OINT 3.5GM TUBE OP SCH ×2 (10:16→18:21)
[2017-11-06] MEDS: POTASSIUM CHLORIDE 20MEQ/100ML 100 ML IV SCH ×4 (10:16→18:21)
[2017-11-06] MEDS: FOLIC ACID 1 MG TAB PO SCH (10:16)
[2017-11-06] MEDS: CEFEPIME HCL 1 GM VIAL IV SCH ×2 (10:16→21:47)
[2017-11-06] MEDS: FUROSEMIDE INJ 10 MG/ML 4 ML VIAL IV SCH ×2 (10:16→17:00)
[2017-11-06] MEDS: FLUCONAZOLE 200 MG/100 ML 100 ML IV SCH (11:37)
[2017-11-06] MEDS: METOPROLOL TARTRATE 25 MG TAB PO SCH ×3 (11:37→23:43)
[2017-11-06] MEDS: LEVOFLOXACIN 750MG/D5W 150ML 150 ML IV SCH (11:37)
[2017-11-06] MEDS: HYDRALAZINE HCL 20 MG/ML VIAL IV PRN (13:57)
[2017-11-06] MEDS: CIPROFLOXACIN HCL (OPTH OINT) 3.5 GM TUBE OP SCH (21:47)
[2017-11-07] VITALS (19 sets, daily range): BP systolic 116–189; BP diastolic 68–119
[2017-11-07] MEDS: LEVALBUTEROL HCL SOLN NEBU 0.63 MG/3 ML NEB IH SCH ×4 (00:25→19:01)
[2017-11-07] MEDS: HYDRALAZINE HCL 20 MG/ML VIAL IV PRN ×2 (00:33→21:41)
[2017-11-07] MEDS ORDERED: LEVOTHYROXINE SODIUM 25 MCG TABLET ONE (05:26)
[2017-11-07] MEDS: METRONIDAZOLE 500MG/NS 100ML 100 ML IV SCH (05:48)
[2017-11-07] MEDS: METOPROLOL TARTRATE 25 MG TAB PO SCH (05:49)
[2017-11-07] MEDS: LEVOTHYROXINE SODIUM 125 MCG TAB PO SCH (05:49)
--- NOTE | 2017-11-07 06:06 | Diagnostic Imaging Report ---
CHEST SINGLE (PORTABLE), 11/07/2017 7:00 AM Technique: CHEST SINGLE (PORTABLE) Comparison: 11/05/2017. Clinical history: Pneumonia Findings: See Impression Impression: Limited portable view with soft tissue attenuation 1. Lines/Tubes: ET tube is no longer seen. Stable visualized right PICC near the cavoatrial junction. 2. Improved lung volumes with persistent consolidation throughout the left lung and patchy right lung opacities. Underlying pleural effusions. Signed by: Dr Kendy Domingo MD on 11/07/2017 6:01 AM
[2017-11-07 06:16] LABS: INR 1.35; PROTHROMBIN TIME 15.7 seconds (11.9-14.5)
[2017-11-07 06:22] LABS: BASOPHILS # (AUTO) 0.1 (0.0-0.1); BASOPHILS % 0.6 % (0.0-1.0); EOSINOPHILS # (AUTO) 0.1 (0.0-0.4); EOSINOPHILS % 0.4 % (0.0-6.0); HEMOGLOBIN 11.3 g/dL (12.0-16.0); LYMPHOCYTES # (AUTO) 1.3 (1.0-3.2); LYMPHOCYTES % 6.4 % (18.0-39.1); MEAN CORPUSCULAR HEMOGLOBIN 27.2 pg (28-32); MEAN CORPUSCULAR HGB CONC 31.4 g/dL (31-35); MEAN CORPUSCULAR VOLUME 86.7 fL (81-99); MONOCYTES # (AUTO) 2.1 (0.2-0.8); MONOCYTES % 10.5 % (4.4-11.3); NEUTROPHILS # (AUTO) 15.9 (2.1-6.9); PLATELET COUNT 583 x10e3/uL (140-360); RED BLOOD COUNT 4.15 x10e6/uL (3.6-5.1); RED CELL DISTRIBUTION WIDTH 20.4 % (11.7-14.4)
[2017-11-07 06:37] LABS: ALANINE AMINOTRANSFERASE 50 IU/L (0-55); ALBUMIN 2.8 g/dL (3.5-5.0); ALBUMIN/GLOBULIN RATIO 0.6 (0.8-2.0); ALKALINE PHOSPHATASE 305 IU/L (40-150); ANION GAP 16.7 mmol/L (8-16); BLOOD UREA NITROGEN 14 mg/dL (7-26); BUN/CREATININE RATIO 18 (6-25); CALCIUM 8.8 mg/dL (8.4-10.2); CARBON DIOXIDE 26 mmol/L (22-29); CHLORIDE 104 mmol/L (98-107); CREATININE, SERUM 0.77 mg/dL (0.57-1.11); EST GLOMERULAR FILTRATION RATE > 60 ML/MIN (60-); GLUCOSE 114 mg/dL (74-118); SODIUM 144 mmol/L (136-145)
[2017-11-07 06:40] LABS: POTASSIUM 2.7 mmol/L (3.5-5.1)
[2017-11-07] MEDS: LEVOFLOXACIN 750MG/D5W 150ML 150 ML IV SCH (10:40)
[2017-11-07] MEDS: EYE LUBRICANT OPTH OINT 3.5GM TUBE OP SCH ×2 (10:40→17:03)
[2017-11-07] MEDS: FOLIC ACID 1 MG TAB PO SCH (10:40)
[2017-11-07] MEDS: CEFEPIME HCL 1 GM VIAL IV SCH (10:40)
[2017-11-07] MEDS ORDERED: POTASSIUM CHLORIDE 20 MEQ TAB CR PO ONE (12:00)
[2017-11-07] MEDS: METOPROLOL TARTRATE 50 MG TAB PO SCH ×2 (15:04→20:39)
[2017-11-07] MEDS: LEVALBUTEROL HCL SOLN NEBU 1.25 MG/3 ML NEB INH PRN (16:15)
--- NOTE | 2017-11-07 16:28 | Progress Note ---
DATE: SUBJECTIVE: Ms. Stuart is doing better today. She is off the vent, up in a chair, eating comfortable, feeling better, still a bit short of breath. No new complaints. I got her up-to-date on her condition. REVIEW OF SYSTEMS HEENT: Negative. PULMONARY: Still some shortness of breath and cough, otherwise unremarkable. LABORATORY DATA: White count is 19.68, hemoglobin 11.3, hematocrit 36, her platelet is 583. Sodium 144, potassium 2.7, creatinine 0.77, albumin is 2.8. Her cultures remained negative. PHYSICAL EXAMINATION GENERAL: She is currently alert, does not seem to be in acute distress. VITALS: No fever. T-max 100.2 on November 06, 2017. HEENT: She does not appear icteric, but conjunctivae are hyperemic. NECK: Supple. No JVD. No thyromegaly. CHEST: Few crackles, coarse. HEART: S1 and S2. No S3, S4, or murmurs. ABDOMEN: Soft. IMPRESSION AND PLAN 1. Sepsis on admission secondary to community-acquired pneumonia secondary to Legionella. She is currently on Levaquin. Continue with the same. 2. Leukocytosis. Slowly better. I am going to continue with the Levaquin. We will stop her Diflucan, metronidazole, and cefepime. We will check CBC and chem panel. We will follow. Will need to stay in ICU one more day. Job#: [id number] MICAELA
[2017-11-07] MEDS: HYDRALAZINE HCL 10 MG TAB PO SCH (17:04)
[2017-11-07] MEDS: CIPROFLOXACIN HCL (OPTH OINT) 3.5 GM TUBE OP SCH (20:36)
[2017-11-07] MEDS: ACETAMINOPHEN 325 MG/10 ML UDC NG PRN (21:40)
[2017-11-08] MEDS: LEVALBUTEROL HCL SOLN NEBU 0.63 MG/3 ML NEB IH SCH ×4 (01:50→19:40)
[2017-11-08] MEDS: METOPROLOL TARTRATE 50 MG TAB PO SCH ×3 (06:00→22:07)
[2017-11-08] MEDS: LEVOTHYROXINE SODIUM 125 MCG TAB PO SCH (06:02)
[2017-11-08 07:28] LABS: BASOPHILS # (AUTO) 0.1 (0.0-0.1); BASOPHILS % 0.9 % (0.0-1.0); EOSINOPHILS # (AUTO) 0.2 (0.0-0.4); EOSINOPHILS % 1.7 % (0.0-6.0); HEMATOCRIT 34.5 % (34.2-44.1); HEMOGLOBIN 10.8 g/dL (12.0-16.0); LYMPHOCYTES # (AUTO) 1.1 (1.0-3.2); LYMPHOCYTES % 8.3 % (18.0-39.1); MEAN CORPUSCULAR HEMOGLOBIN 27.1 pg (28-32); MEAN CORPUSCULAR HGB CONC 31.3 g/dL (31-35); MEAN CORPUSCULAR VOLUME 86.5 fL (81-99); MONOCYTES # (AUTO) 1.5 (0.2-0.8); MONOCYTES % 11.8 % (4.4-11.3); NEUTROPHILS # (AUTO) 9.9 (2.1-6.9); NEUTROPHILS % 76.3 % (38.7-80.0); PLATELET COUNT 505 x10e3/uL (140-360); RED BLOOD COUNT 3.99 x10e6/uL (3.6-5.1); RED CELL DISTRIBUTION WIDTH 20.2 % (11.7-14.4)
[2017-11-08 07:48] LABS: ANION GAP 13.8 mmol/L (8-16); BLOOD UREA NITROGEN 11 mg/dL (7-26); BUN/CREATININE RATIO 16 (6-25); CALCIUM 8.5 mg/dL (8.4-10.2); CARBON DIOXIDE 27 mmol/L (22-29); CHLORIDE 109 mmol/L (98-107); CREATININE, SERUM 0.67 mg/dL (0.57-1.11); EST GLOMERULAR FILTRATION RATE > 60 ML/MIN (60-); GLUCOSE 96 mg/dL (74-118); SODIUM 147 mmol/L (136-145)
[2017-11-08 07:52] LABS: POTASSIUM 2.8 mmol/L (3.5-5.1)
[2017-11-08 08:12] VITALS: BP 170/110
[2017-11-08 08:16] VITALS: BP 170/110
[2017-11-08] MEDS ORDERED: POTASSIUM CHLORIDE 20 MEQ TAB CR PO ONE ×2 (09:00→10:00)
[2017-11-08] MEDS: HYDRALAZINE HCL 10 MG TAB PO SCH (09:06)
[2017-11-08] MEDS: EYE LUBRICANT OPTH OINT 3.5GM TUBE OP SCH ×2 (09:06→17:10)
[2017-11-08] MEDS: FOLIC ACID 1 MG TAB PO SCH (09:06)
[2017-11-08] MEDS: LEVOFLOXACIN 750MG/D5W 150ML 150 ML IV SCH (10:18)
[2017-11-08 10:33] LABS: BAND NEUTROPHILS % (MANUAL) 1 %; LYMPHOCYTES % (MANUAL) 4 % (19-48); MONOCYTES % (MANUAL) 14 % (3.4-9.0); NEUTROPHILS % (MANUAL) 81 % (40-74); PLATELET ESTIMATE MODERATELY INCREASED; PLATELET MORPHOLOGY COMMENT NORMAL; RBC MORPHOLOGY COMMENT NORMAL
[2017-11-08 11:15] VITALS: BP 138/84
[2017-11-08 13:39] LABS: ANION GAP 14.2 mmol/L (8-16); BLOOD UREA NITROGEN 11 mg/dL (7-26); BUN/CREATININE RATIO 14 (6-25); CALCIUM 8.7 mg/dL (8.4-10.2); CARBON DIOXIDE 23 mmol/L (22-29); CHLORIDE 107 mmol/L (98-107); CREATININE, SERUM 0.76 mg/dL (0.57-1.11); EST GLOMERULAR FILTRATION RATE > 60 ML/MIN (60-); GLUCOSE 178 mg/dL (74-118); POTASSIUM 3.2 mmol/L (3.5-5.1); SODIUM 141 mmol/L (136-145)
[2017-11-08] MEDS: POTASSIUM CHLORIDE 20 MEQ TAB CR PO PRN (15:00)
[2017-11-08 17:08] VITALS: BP 173/107
[2017-11-08] MEDS: HYDRALAZINE HCL 25 MG TAB PO SCH (17:10)
[2017-11-08 20:00] VITALS: BP 175/95
[2017-11-08] MEDS: CIPROFLOXACIN HCL (OPTH OINT) 3.5 GM TUBE OP SCH (21:30)
[2017-11-09 00:01] VITALS: BP 166/112
[2017-11-09] MEDS: METOPROLOL TARTRATE INJ 1 MG/ML VIAL IV PRN (00:11)
[2017-11-09] MEDS: LEVALBUTEROL HCL SOLN NEBU 0.63 MG/3 ML NEB IH SCH ×4 (01:10→19:35)
[2017-11-09] MEDS: DIPHENHYDRAMINE HCL 25 MG CAP PO PRN ×2 (01:40→03:50)
[2017-11-09] MEDS: METOPROLOL TARTRATE 50 MG TAB PO SCH ×3 (05:48→21:30)
[2017-11-09] MEDS: LEVOTHYROXINE SODIUM 125 MCG TAB PO SCH (06:06)
[2017-11-09 07:22] LABS: ANION GAP 14.3 mmol/L (8-16); BLOOD UREA NITROGEN 10 mg/dL (7-26); BUN/CREATININE RATIO 14 (6-25); CALCIUM 8.7 mg/dL (8.4-10.2); CARBON DIOXIDE 24 mmol/L (22-29); CHLORIDE 109 mmol/L (98-107); CREATININE, SERUM 0.71 mg/dL (0.57-1.11); EST GLOMERULAR FILTRATION RATE > 60 ML/MIN (60-); GLUCOSE 87 mg/dL (74-118); POTASSIUM 3.3 mmol/L (3.5-5.1); SODIUM 144 mmol/L (136-145)
[2017-11-09 07:45] VITALS: BP 129/86
[2017-11-09 07:54] VITALS: BP 129/86
[2017-11-09] MEDS: EYE LUBRICANT OPTH OINT 3.5GM TUBE OP SCH ×2 (08:10→16:07)
[2017-11-09] MEDS: HYDRALAZINE HCL 25 MG TAB PO SCH ×3 (08:10→21:30)
[2017-11-09] MEDS: FOLIC ACID 1 MG TAB PO SCH (08:10)
[2017-11-09] MEDS ORDERED: MISOPROSTOL 100 MCG TAB ONE (09:55)
[2017-11-09] MEDS ORDERED: SILVER NITRATE SWABS ONE (09:56)
[2017-11-09] MEDS ORDERED: OXYTOCIN INJ 10 UNIT/ML VIAL ONE (09:56)
[2017-11-09] MEDS ORDERED: METRONIDAZOLE 500MG/NS 100ML 100 ML IV ONE (10:31)
[2017-11-09] MEDS: LEVOFLOXACIN 750MG/D5W 150ML 150 ML IV SCH (10:32)
[2017-11-09] MEDS ORDERED: SODIUM CHLORIDE 0.9% 250ML 250 ML ONE (11:18)
--- NOTE | 2017-11-09 11:24 | Diagnostic Imaging Report ---
PROCEDURE:TRANSVAGINAL ULTRASOUND COMPARISON:Pelvic ultrasound 10/30/17 INDICATIONS:MISCARRIAGE TECHNIQUE: Grayscale transverse and sagittal transvaginal images were obtained of the pelvis. FINDINGS: UTERUS: Measures 5.0 x 6.0 x 2.1 cm. Myometrial echotexture is normal. No fibroid. ENDOMETRIUM: Measures 9 mm in thickness. The echotexture is normal. No fluid in endometrial canal. No evidence of gestational sac, yolk sac or embryo. A soft tissue structure in the endometrial canal on previous exam is no longer visualized. CERVIX: The endocervical canal is distended with fluid and contains a soft tissue structure measuring 9 x 13 x 29 mm. No vascularity on color Doppler interrogation. Organizational Development Director reports fluid moving from the lower endometrial canal to the cervix. RIGHT OVARY: Not visualized. LEFT OVARY: 1.2 x 1.7 x 2.5 cm. The echotexture is normal. A paraovarian cyst measures 9 x 11 x 13 mm. There is trace amount of free fluid within the pelvis. CONCLUSION: No evidence of intrauterine . An avascular soft tissue structure in the endocervical canal may represent blood or products of conception. Normal left ovary. Non-visualization of the right ovary. Dictated by: Isabella Giordano M.D. on 11/09/2017 at 11:27 Electronically approved by: Isabella Giordano M.D. on 11/09/2017 at 11:27
[2017-11-09] MEDS ORDERED: DOCUSATE SODIUM 100 MG CAP PO PRN (11:30)
[2017-11-09] MEDS ORDERED: IBUPROFEN 600 MG TAB PO PRN (11:30)
[2017-11-09] MEDS ORDERED: SIMETHICONE 80 MG CHEW PO PRN (11:30)
--- NOTE | 2017-11-09 12:49 | Operative Report ---
DATE OF PROCEDURE: November 09, 2017 PREOPERATIVE DIAGNOSES 1. Incomplete . 2. 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 4. Pneumonia. POSTOPERATIVE DIAGNOSES 1. Incomplete . 2. 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 4. Pneumonia. TITLE OF PROCEDURE: Suction curettage. ANESTHESIA: LMA with Dr. Moya and Umiar, curriculum assistant. INDICATIONS FOR OPERATION: The patient is a 37-year-old, 1, para 0, with known , even though she had been told her entire life she could never get because of Gooden syndrome. She was found to be Gooden mosaic and became . However, the was nonviable. She had a 3-cm sac, which has now decreased to 2 cm and has moved to the lower uterine segment. She has had some bleeding. She is, therefore, taken to the operating room for D and C secondary to incomplete . FINDINGS AT SURGERY: The cervical os was opened with products of conception just inside in the lower uterine segment. Products of conception were easily obtained with the ring forceps and a #12 suction curette. The uterus was 10 to 12 weeks' size prior to the surgery and decreased to 8 weeks' size and was well contracted after surgery. PROCEDURE: The patient was taken to the operating room and placed on the table in the supine position. General anesthesia was administered. The patient was then placed in the lithotomy position. The perineum was prepared and draped in the usual sterile manner. The bladder was drained by in-and-out catheterization. A Graves speculum was placed after exam revealed a 10 to 12 week size anteverted uterus with open cervix. A Graves speculum was placed. The cervix was already dilated. Ring forceps were placed over the anterior lip of the cervix. Then another ring forceps were used to grasp the products of conception, which were just inside the cervix, brought out and sent to pathology for definitive diagnosis. Once all the products in the os were removed easily with the ring forceps, a #12 suction curette was used. The curettage was performed, and a small amount of further tissue was obtained and sent to pathology for definitive diagnosis. Then a sharp curette was used, and curettage was performed until the uterine cry was felt on all 4 loera of the uterus. Then no bleeding was noted. At this point, the procedure was deemed terminated. All the air and instruments were removed from the vagina. There were no complications noted. Estimated blood loss was 50 mL. The patient tolerated the procedure well and was transferred from the operating room to the recovery room in stable condition. She will receive Levaquin and Flagyl prophylaxis. Again, the products of conception were sent to pathology. Job#: [id number] NAKUL
[2017-11-09] MEDS ORDERED: POTASSIUM CHLORIDE 20 MEQ TAB CR PO STA (13:50)
[2017-11-09 14:41] VITALS: BP 139/95
[2017-11-09] MEDS ORDERED: FENTANYL CITRATE/PF 100MCG/2 ML INJ ONE (14:59)
[2017-11-09] MEDS ORDERED: MIDAZOLAM HCL 2 MG/2 ML VIAL ONE (14:59)
[2017-11-09] MEDS: MISOPROSTOL 100 MCG TAB PO SCH (16:07)
[2017-11-09] MEDS ORDERED: SEVOFLURANE INHAL SOLN 250 ML PEN BTL ONE (18:10)
[2017-11-09] MEDS ORDERED: LIDOCAINE HCL 2% LOCAL INJ 5 ML SDV VIAL INJ ONE (18:10)
[2017-11-09] MEDS ORDERED: ONDANSETRON HCL INJ 2 MG/ML VIAL ONE (18:10)
[2017-11-09] MEDS ORDERED: DEXAMETHASONE SOD PHOS INJ 4 MG/ML VIAL ONE (18:10)
[2017-11-09] MEDS ORDERED: PROPOFOL IV EMULSION 10 MG/ML 20 ML VIAL ONE (18:10)
[2017-11-09 21:00] VITALS: BP 156/99
[2017-11-09 21:50] VITALS: BP 156/99
[2017-11-09] MEDS: CIPROFLOXACIN HCL (OPTH OINT) 3.5 GM TUBE OP SCH (22:30)
[2017-11-10] VITALS: BP 132/85
[2017-11-10] MEDS: LEVALBUTEROL HCL SOLN NEBU 0.63 MG/3 ML NEB IH SCH ×3 (01:30→15:10)
[2017-11-10 04:02] VITALS: BP 140/86
[2017-11-10 05:40] LABS: ANION GAP 14.2 mmol/L (8-16); BLOOD UREA NITROGEN 12 mg/dL (7-26); BUN/CREATININE RATIO 18 (6-25); CARBON DIOXIDE 20 mmol/L (22-29); CHLORIDE 110 mmol/L (98-107); CREATININE, SERUM 0.65 mg/dL (0.57-1.11); EST GLOMERULAR FILTRATION RATE > 60 ML/MIN (60-); GLUCOSE 92 mg/dL (74-118); POTASSIUM 3.2 mmol/L (3.5-5.1); SODIUM 141 mmol/L (136-145)
[2017-11-10] MEDS: METOPROLOL TARTRATE 50 MG TAB PO SCH ×2 (05:45→13:13)
[2017-11-10 05:46] LABS: BASOPHILS # (AUTO) 0.1 (0.0-0.1); BASOPHILS % 0.5 % (0.0-1.0); EOSINOPHILS # (AUTO) 0.1 (0.0-0.4); EOSINOPHILS % 0.5 % (0.0-6.0); HEMATOCRIT 33.1 % (34.2-44.1); HEMOGLOBIN 10.1 g/dL (12.0-16.0); LYMPHOCYTES # (AUTO) 1.3 (1.0-3.2); MEAN CORPUSCULAR HEMOGLOBIN 27.1 pg (28-32); MEAN CORPUSCULAR HGB CONC 30.5 g/dL (31-35); MEAN CORPUSCULAR VOLUME 88.7 fL (81-99); MONOCYTES # (AUTO) 1.2 (0.2-0.8); MONOCYTES % 10.6 % (4.4-11.3); NEUTROPHILS # (AUTO) 8.3 (2.1-6.9); NEUTROPHILS % 75.9 % (38.7-80.0); PLATELET COUNT 162 x10e3/uL (140-360); RED BLOOD COUNT 3.73 x10e6/uL (3.6-5.1); RED CELL DISTRIBUTION WIDTH 20.4 % (11.7-14.4)
[2017-11-10] MEDS: LEVOTHYROXINE SODIUM 125 MCG TAB PO SCH (06:26)
--- NOTE | 2017-11-10 06:59 | Diagnostic Imaging Report ---
EXAMINATION: CHEST SINGLE (PORTABLE) INDICATION: Shortness of breath COMPARISON: November 07, 2017 FINDINGS: TUBES and LINES: Right upper extremity PICC line is stable in good position with tip overlying the SVC. LUNGS: Lungs are not well inflated. Multifocal airspace opacities predominantly involving the left hemithorax with patchy airspace disease in the right upper lobe with areas of questionable central cavitation. PLEURA: Trace of left pleural effusion HEART AND MEDIASTINUM: Cardiac size is moderately enlarged. There are atherosclerotic calcifications within the aorta. BONES AND SOFT TISSUES: No acute osseous lesion. Soft tissues are unremarkable. UPPER ABDOMEN: No free air under the diaphragm. IMPRESSION: Findings are compatible with stable multifocal pneumonia. Signed by: Dr. Preston Mendez M.D. on 11/10/2017 6:56 AM
[2017-11-10 07:08] LABS: HYPOCHROMASIA SLIGHT; RBC MORPHOLOGY COMMENT NORMAL
[2017-11-10 07:09] LABS: ANISOCYTOSIS SLIG; PLATELET ESTIMATE ADEQUATE; PLATELET MORPHOLOGY COMMENT RARE EDTA CLUMPING; POIKILOCYTOSIS SLIGHT
[2017-11-10] MEDS: EYE LUBRICANT OPTH OINT 3.5GM TUBE OP SCH (08:53)
[2017-11-10] MEDS: MISOPROSTOL 100 MCG TAB PO SCH (08:55)
[2017-11-10] MEDS: FOLIC ACID 1 MG TAB PO SCH (08:55)
[2017-11-10] MEDS: HYDRALAZINE HCL 25 MG TAB PO SCH ×2 (08:55→13:14)
[2017-11-10 08:58] VITALS: BP 150/96
[2017-11-10] MEDS ORDERED: LEVOFLOXACIN 500 MG TAB PO SCH (09:00)
[2017-11-10 09:04] VITALS: BP 150/96
[2017-11-10] MEDS: POTASSIUM CHLORIDE 20 MEQ TAB CR PO PRN (11:30)
[2017-11-10 13:12] VITALS: BP 145/101
[2017-11-10] MEDS ORDERED: LOPRESSOR25 MG PO (14:44)
[2017-11-10] MEDS ORDERED: HYDRALAZINE HCL25 MG PO (14:59)
[2017-11-10] MEDS ORDERED: CYTOTEC100 MCG (15:00)
[2017-11-10] MEDS ORDERED: LEVAQUIN500 MG PO (15:10)
[2017-11-10 16:30] VITALS: BP 152/93
--- NOTE | 2017-11-10 20:27 | Discharge Summary ---
FINAL DIAGNOSES 1. Severe Legionella pneumonia. 2. Acute hypoxic respiratory failure. 3. state. 4. Hypertension. ADMISSION HISTORY AND HOSPITAL COURSE: Ms. Ramirez is a 37-year-old female who was admitted on 10/25/2017 with severe shortness of breath. The patient was intubated in the hospital and was on mechanical ventilator. Blood pressure remained high and Dr. Otoole was consulted as well for blood pressure management. Dr. Hollins was consulted as the patient had severe, dense pneumonia on the left lung. The patient underwent bronchoscopy by me as well and no mucus plugging was seen. She remained on the ventilator and gradually was weaned off the ventilator. Her urine Legionella antigen was positive and she was continued on broad-spectrum antibiotics. She was found to be and HCG was high and PURIFYING PLANT OPERATOR was consulted and they followed the patient. Final ultrasound showed was not viable. The patient underwent D\T\C by Dr. Blake. She has been doing very well. She has been off of oxygen. She will be discharged home on p.o. antibiotics and per ID recommendation. She will be on mifepristone per FUEL PILOT ENGINEER recommendation. I have also prescribed an antihypertensive medication. She will follow up with me in 2-3 weeks with chest x-ray. Her followup chest x-ray in the hospital has markedly improved. BOOGIE WALDEN MD Job#: [id number]
--- NOTE | 2017-12-22 11:08 | Operative Report ---
DATE OF PROCEDURE: PROCEDURE: Bronchoscopy. PREOPERATIVE DIAGNOSES 1. Acute respiratory failure. 2. Pneumonia. POSTOPERATIVE DIAGNOSES 1. Acute respiratory failure. 2. Pneumonia. The patient was intubated and sedated with propofol. Bronchoscope was introduced through the ET tube. Both lungs were examined to the segmental level. Thin secretions and some mucopurulence was seen, but no endobronchial lesion was seen. Samples were sent for Gram stain, culture, fungus, AFB. COMPLICATIONS: None. BLOOD LOSS: None. Job#: [id number] CO
== END 2017-11-10 17:21 | disposition home or self-care (01) | DRG 853 ==
LOC: FSED 11:58 → ICU 14:29 → ACU 10-26 11:47 → ICU 10-26 11:48 → IMCU 11-07 17:48
PROVIDERS: ADMIT Internal Medicine; ATTEND Internal Medicine
PROC: 5A1955Z Respiratory Ventilation, Greater than 96 Consecutive Hours (ICD-10-PCS; principal; 2017-10-25)
PROC: 0BH17EZ Insertion of Endotracheal Airway into Trachea, Via Natural or Artificial Opening (ICD-10-PCS; 2017-10-25)
PROC: 02HV33Z Insertion of Infusion Device into Superior Vena Cava, Percutaneous Approach (ICD-10-PCS; 2017-10-25)
PROC: 0BJ08ZZ Inspection of Tracheobronchial Tree, Via Natural or Artificial Opening Endoscopic (ICD-10-PCS; 2017-10-28)
PROC: 30233N1 Transfusion of Nonautologous Red Blood Cells into Peripheral Vein, Percutaneous Approach (ICD-10-PCS; 2017-10-30)
PROC: 10D17ZZ Extraction of Products of Conception, Retained, Via Natural or Artificial Opening (ICD-10-PCS; 2017-11-09)
DX: A41.9 Sepsis, unspecified organism (principal); A48.1 Legionnaires' disease; J96.01 Acute respiratory failure with hypoxia; N17.0 Acute kidney failure with tubular necrosis; Q87.1 Congenital malformation syndromes predominantly associated with short stature; R65.20 Severe sepsis without septic shock; F95.2 Tourette's disorder; E03.9 Hypothyroidism, unspecified; E88.09 Other disorders of plasma-protein metabolism, not elsewhere classified; R00.0 Tachycardia, unspecified; Z88.5 Allergy status to narcotic agent; Z88.2 Allergy status to sulfonamides; Z33.1 Pregnant state, incidental
CPT/HCPCS: 36415; 36430; 36569; 36600; 71045; 71260; 71275; 74177; 76604; 76700; 76705; 76801; 76817; 76830; 80048; 80053; 80202; 81003; 82550; 82553; 82805; 82948; 83540; 83605; 83735; 84144; 84436; 84443; 84466; 84479; 84484; 84702; 85025; 85379; 85610; 85730; 86631; 86738; 86850; 86900; 86920; 87040; 87070; 87086; 87102; 87205; 87206; 87390; 87400; 87449; 87493; 88112; 88304; 88305; 89051; 93005; 93306; 94002; 94003; 94640; 94660; 96361; 96365; 97139; 99285; G0433; G0435; J0330; J0360; J0456; J0692; J1100; J1450; J1650; J1756; J1940; J1956; J2001; J2250; J2405; J2543; J2590; J2997; J3370; J3480; J7030; J7040; J7050; J7120; J7799; P9016; Q9967

== ENCOUNTER → 2018-04-26 | Outpatient (CLI) | payer OTHER ==
[~2018-04-26] MED LIST: CYTOTEC100 MCG; HYDRALAZINE HCL25 MG PO; LEVAQUIN500 MG PO; LOPRESSOR25 MG PO; METOPROLOL SUCC50 MG PO; SYNTHROID125 MCG PO
--- NOTE | 2018-04-26 11:49 | Diagnostic Imaging Report ---
PROCEDURE: X-RAY CHEST, TWO VIEWS COMPARISON: Patients [facility] [place], DX, CHEST SINGLE (PORTABLE), 11/10/2017, 5:42. INDICATIONS: PNEUMONIA 6 MONTHS AGO FINDINGS: LUNGS: Confluent airspace opacities previously visualized have resolved. Calcified granulomas are noted. PLEURA: No effusions or pneumothorax. HEART & MEDIASTINUM: The heart is within normal size-limits. BONES & SOFT TISSUES: No acute findings. CONCLUSION: No acute thoracic abnormality. Destin Gutierrez D.O. Dictated by: Destin Gutierrez D.O. on 04/26/2018 at 11:59 Electronically approved by: Destin Gutierrez D.O. on 04/26/2018 at 11:59
== END ==
LOC: RAD 10:08
PROVIDERS: ATTEND Internal Medicine
DX: J18.9 Pneumonia, unspecified organism (principal); J45.909 Unspecified asthma, uncomplicated; Q96.9 Turner's syndrome, unspecified
CPT/HCPCS: 71046